=== PATIENT | male | born 1945 | race Caucasian/White ===

== ENCOUNTER → 2016-09-01 | Outpatient (CLI) | payer BC ==
[~2016-09-01] MED LIST: GLC/500 PO; GLIM2TAB2 PO
[2016-09-01 16:25] LABS: ALT/SGPT 16 U/L (12-78); BLOOD UREA NITROGEN 19 mg/dl (7-18); BUN/CREATININE RATIO 19.9 (10-20); CALCIUM 9.3 mg/dl (8.5-10.1); CARBON DIOXIDE 27 mmol/L (21-32); CHLORIDE 103 mmol/L (98-107); CREATININE 0.94 mg/dl (0.60-1.40); GLUCOSE 135 mg/dl (70-99); POTASSIUM 3.9 mmol/L (3.5-5.1); SODIUM 138 mmol/L (136-145)
[2016-09-01 16:28] LABS: ALB/GLOB RATIO 1.1 (0.9-2); ALKALINE PHOSPHATASE 60 U/L (45-117); AST/SGOT 12 U/L (15-37)
[2016-09-01 16:32] LABS: ESTIMATED AVERAGE GLUCOSE 186 mg/dl; HA1C FLAG Normal (Normal)
== END | disposition home or self-care (01) ==
LOC: C.LAB 14:36
PROVIDERS: ATTEND Nurse Practitioner Family
DX: E11.42 Type 2 diabetes mellitus with diabetic polyneuropathy (principal)

== ENCOUNTER → 2017-03-30 | Outpatient (CLI) | payer BC ==
[2017-03-30 12:42] LABS: BASO % 1.1 %; BASO ABS # 0.06 K/uL (0-0.2); COMPLETE YES; EOS % 3.6 %; HEMATOCRIT 40.9 % (42-52); LYMPH % 25.1 %; LYMPH ABS # 1.34 K/uL (1.2-3.4); MEAN CELL VOLUME 88.1 fL (80-100); MEAN CORPUSCULAR HEMOGLOBIN 29.7 pg (25-34); MEAN CORPUSCULAR HGB CONC 33.7 g/dl (32-36); MEAN PLATELET VOLUME 10.5 fL (7.4-10.4); MONO % 11.1 %; NEUT % 59.1 %; PLATELET COUNT 174 K/uL (130-400); RED BLOOD COUNT 4.64 M/uL (4.7-6.1); WHITE BLOOD COUNT 5.33 K/uL (4.8-10.8)
[2017-03-30 13:21] LABS: ALT/SGPT 17 U/L (12-78); AST/SGOT 12 U/L (15-37); BLOOD UREA NITROGEN 16 mg/dl (7-18); BUN/CREATININE RATIO 19.2 (10-20); CALCIUM 9.3 mg/dl (8.5-10.1); CARBON DIOXIDE 29 mmol/L (21-32); CHLORIDE 101 mmol/L (98-107); CHOLESTEROL 216 mg/dl (0-200); CREATININE 0.85 mg/dl (0.60-1.40); GLUCOSE 135 mg/dl (70-99); POTASSIUM 4.3 mmol/L (3.5-5.1); SODIUM 137 mmol/L (136-145)
[2017-03-30 13:25] LABS: ALB/GLOB RATIO 1.1 (0.9-2); ALKALINE PHOSPHATASE 60 U/L (45-117); CHOLESTEROL/HDL RATIO 3.9; HDL CHOLESTEROL 56 mg/dl; LDL CHOLESTEROL CALCULATED 131 mg/dl; TRIGLYCERIDES 144 mg/dl (0-150); VERY LOW DENSITY LIPOPROT CALC 29 mg/dl
[2017-03-30 13:35] LABS: ESTIMATED AVERAGE GLUCOSE 169 mg/dl; HA1C FLAG Normal (Normal)
[2017-03-30 16:06] LABS: CREATININE RANDOM URINE 76.9 mg/dl
[2017-03-30 16:27] LABS: RATIO 12.9 mcg/mg (0-30.0)
== END | disposition home or self-care (01) ==
LOC: C.LAB 11:40
PROVIDERS: ATTEND Nurse Practitioner Family
DX: E11.9 Type 2 diabetes mellitus without complications (principal); Z13.220 Encounter for screening for lipoid disorders

== ENCOUNTER → 2018-01-14 | Outpatient (CLI) | payer BC ==
[2018-01-14 11:27] LABS: ALBUMIN 3.9 gm/dl (3.4-5.0); ALKALINE PHOSPHATASE 50 U/L (45-117); ALT/SGPT 19 U/L (12-78); AST/SGOT 14 U/L (15-37); BLOOD UREA NITROGEN 16 mg/dl (7-18); CALCIUM 8.9 mg/dl (8.5-10.1); CARBON DIOXIDE 28 mmol/L (21-32); CREATININE 1.11 mg/dl (0.60-1.40); GLUCOSE 214 mg/dl (70-99); POTASSIUM 4.4 mmol/L (3.5-5.1); SODIUM 136 mmol/L (136-145); TOTAL PROTEIN 7.7 gm/dl (6.4-8.2)
== END | disposition home or self-care (01) ==
LOC: C.LAB 10:22
PROVIDERS: ATTEND Nurse Practitioner Family
DX: R79.89 Other specified abnormal findings of blood chemistry (principal)

== ENCOUNTER 2018-07-09 13:40 | Inpatient (IN) ==
[2018-07-09 14:19] LABS: Basophils # (auto) 0.06 K/uL (0-0.2); Basophils % (auto) 1.2 %; Eosinophils # (auto) 0.06 K/uL (0-0.5); Eosinophils % (auto) 1.2 %; Hematocrit (blood only) 34.9 % (42-52); Hemoglobin 11.9 g/dL (14.0-18.0); Immature Granulocytes # (auto) 0.01 K/uL (0.00-0.02); Immature Granulocytes % (auto) 0.2 %; Lymphocytes # (auto) 0.56 K/uL (1.2-3.4); Lymphocytes % (auto) 11.1 %; Mean Corpuscular Hgb Conc 34.1 g/dL (32-36); Mean Corpuscular Volume 85.1 fL (80-100); Mean Platelet Volume 10.1 fL (7.4-10.4); Monocytes # (auto) 0.61 K/uL (0.11-0.59); Monocytes % (auto) 12.1 %; Neutrophils # (auto) 3.73 K/uL (1.4-6.5); Neutrophils % (auto) 74.2 %; Platelet Count 204 K/uL (130-400); RDW Coefficient of Variation 12.5 % (11.5-14.5); White Blood Count 5.03 K/uL (4.8-10.8)
[2018-07-09 14:31] LABS: INR 1.1 (0.9-1.1); Partial Thromboplastin Ratio 1.1; Partial Thromboplastin Time 29.3 Seconds (21.0-31.0); Prothrombin Time 11.1 Seconds (9.0-12.0)
[2018-07-09 14:41] LABS: Alanine Aminotransferase 25 U/L (12-78); Albumin Level 3.8 gm/dl (3.4-5.0); Aspartate Aminotransferase 22 U/L (15-37); BUN Creatinine Ratio 12.1 (10-20); Blood Urea Nitrogen 18 mg/dl (7-18); Carbon Dioxide 22 mmol/L (21-32); Chloride 92 mmol/L (98-107); Creatinine Clr Calc Pharmacy 45.8 ml/min; Est GFR (Non-African American) 44.9; Glucose 275 mg/dl (70-99); Magnesium 1.7 mg/dl (1.8-2.4); Potassium 4.1 mmol/L (3.5-5.1); Sodium 125 mmol/L (136-145)
[2018-07-09 14:48] LABS: Albumin Globulin Ratio 0.8 (0.9-2); Alkaline Phosphatase 72 U/L (45-117); Bilirubin,Total 1.4 mg/dl (0.2-1); Globulin 4.5 gm/dl (2.5-4.0); Total Protein 8.3 gm/dl (6.4-8.2); Troponin I < 0.015 ng/ml (0-0.045)
--- NOTE | 2018-07-09 15:59 | Emergency Department Note ---
History of Present Illness General Chief complaint: Infection, Wound Stated complaint: SEPSIS IN RIGHT FOOT Source: patient Mode of arrival: ambulatory Limitations: no limitations History of Present Illness Maximum Pain Intensity: 0 This patient is a 73-year-old male who presents to the emergency department complaining of an infection to his right fourth toe. The patient reports that he has been dealing with infection in the toe for the past 6 months on and off. He was told over the last 1-2 weeks that it had progressed to osteomyelitis. He states that approximately 1 week ago, the foot suddenly became more red, inflamed and swollen. He has been experiencing chills over the past 1-2 days. He has been seeing his inspector raw quartz for this infection and has been on antibiotics off and on, most recently ciprofloxacin and Bactrim which he is currently taking. He reports that his recent cultures showed worsening infection. He was seen by the inspector raw quartz today and advised advised to come here for evaluation of sepsis. He denies any known fevers at home. The patient is a diabetic and does not regularly check his blood sugars. He denies any numbness or weakness. Home Medications Home Medications Medication Instructions Recorded Confirmed Type ciprofloxacin HCl 500 mg PO DIRECTED 07/09/18 07/09/18 History glimepiride 4 mg PO DAILY 07/09/18 07/09/18 History metformin 1,000 mg PO BID 07/09/18 07/09/18 History sulfamethoxazole-trimethoprim 0 tab PO DIRECTED 07/09/18 07/09/18 History Allergies Allergy/AdvReac Type Severity Reaction Status Date / Time No Known Allergies Allergy Unknown Verified 07/09/18 21:37 Past Med/Surg History Medical History Type 2 diabetes mellitus (Chronic) Surgical History History of tonsillectomy Family History Other Family history non-contributory Social History Current Living Situation: Spouse current occupational status: retired Other Information That Helps Us Care for You: No Feels Safe at Home: Yes Safety Concerns: Feels Safe At This Time Smoking Status: Never smoker Hx Alcohol Use: No Hx Substance Use: No Beliefs That Will Affect Care: None Preferred Language: Jamaican Communication Ability: Effective Review of Systems A total of 10 systems reviewed and were otherwise negative Physical Exam Vital Signs Vital Signs - 24 hr 07/09/18 13:42 07/09/18 14:45 07/09/18 15:34 Temperature 36.7 C Temperature Source Oral Sepsis Recent Fever Within 48 Hours No Sepsis New/Unexplained Change in Mental Status No Sepsis Action Taken by Nursing No Action Required Pulse Rate 97 H 84 Pulse Rate [Apical] Pulse Rate [Left Finger] Pulse Rhythm [Apical] Pulse Strength [Apical] Respiratory Rate 18 22 Respiratory Effort / Characteristics Non-Labored Respiratory Depth Normal Respiratory Pattern Blood Pressure 138/73 132/69 Blood Pressure [Right Arm] Blood Pressure Mean 94 90 Blood Pressure Mean [Right Arm] Blood Pressure Position [Right Arm] Pulse Oximetry 99 99 94 Oxygen Delivery Method Room Air Room Air 07/09/18 15:48 07/09/18 15:59 07/09/18 16:00 Temperature Temperature Source Sepsis Recent Fever Within 48 Hours Sepsis New/Unexplained Change in Mental Status Sepsis Action Taken by Nursing Pulse Rate 83 82 Pulse Rate [Apical] 87 Pulse Rate [Left Finger] Pulse Rhythm [Apical] Pulse Strength [Apical] Respiratory Rate 20 21 21 Respiratory Effort / Characteristics Respiratory Depth Respiratory Pattern Blood Pressure 126/71 Blood Pressure [Right Arm] 139/74 Blood Pressure Mean 89 Blood Pressure Mean [Right Arm] 95 Blood Pressure Position [Right Arm] Pulse Oximetry 96 94 94 Oxygen Delivery Method Room Air 07/09/18 16:30 07/09/18 17:00 07/09/18 17:30 Temperature Temperature Source Sepsis Recent Fever Within 48 Hours Sepsis New/Unexplained Change in Mental Status Sepsis Action Taken by Nursing Pulse Rate 80 84 86 Pulse Rate [Apical] Pulse Rate [Left Finger] Pulse Rhythm [Apical] Pulse Strength [Apical] Respiratory Rate 22 25 H 28 H Respiratory Effort / Characteristics Respiratory Depth Respiratory Pattern Blood Pressure 126/68 122/78 124/72 Blood Pressure [Right Arm] Blood Pressure Mean 87 92 89 Blood Pressure Mean [Right Arm] Blood Pressure Position [Right Arm] Pulse Oximetry 93 93 94 Oxygen Delivery Method 07/09/18 18:00 07/09/18 18:56 07/09/18 23:00 Temperature 37.1 C 37.9 C H Temperature Source Oral Oral Sepsis Recent Fever Within 48 Hours Sepsis New/Unexplained Change in Mental Status Sepsis Action Taken by Nursing Pulse Rate 83 Pulse Rate [Apical] 87 Pulse Rate [Left Finger] 88 Pulse Rhythm [Apical] Regular Pulse Strength [Apical] Normal Respiratory Rate 21 24 18 Respiratory Effort / Characteristics Non-Labored Spontaneous Respiratory Depth Normal Respiratory Pattern Regular Blood Pressure 135/76 Blood Pressure [Right Arm] 131/71 122/54 L Blood Pressure Mean 95 Blood Pressure Mean [Right Arm] 91 76 Blood Pressure Position [Right Arm] Lying Lying Pulse Oximetry 94 95 92 Oxygen Delivery Method Room Air Room Air 07/10/18 01:47 Temperature 37.3 C Temperature Source Oral Sepsis Recent Fever Within 48 Hours Sepsis New/Unexplained Change in Mental Status Sepsis Action Taken by Nursing Pulse Rate Pulse Rate [Apical] Pulse Rate [Left Finger] Pulse Rhythm [Apical] Pulse Strength [Apical] Respiratory Rate Respiratory Effort / Characteristics Respiratory Depth Respiratory Pattern Blood Pressure Blood Pressure [Right Arm] Blood Pressure Mean Blood Pressure Mean [Right Arm] Blood Pressure Position [Right Arm] Pulse Oximetry Oxygen Delivery Method VITALS: Vitals are noted on the nurse's note and reviewed by myself. Vital signs stable. GENERAL: This is a 73-year-old male, in no acute distress, nondiaphoretic, well- developed well-nourished. SKIN: Clear refill within 2 seconds. EYES: Pupils equal round and reactive to light and accommodation. MOUTH: Mucous membranes moist. NECK: Supple without nuchal rigidity. HEART: Regular rate and rhythm without murmurs gallops or rubs. LUNGS: Clear to auscultation bilaterally without wheezes, rales or rhonchi. ABDOMEN: Soft, nontender to palpation. EXTREMITIES: There is an ulcerated lesion to the lateral aspect of the right fourth digit with surrounding erythema and mild puslike drainage. NEURO: Patient was alert and oriented to person place and time. Distal sensation intact. Course Reevaluation(s) Reevaluation #1: The patient was reevaluated and is agreeable to admission. Consultations Consultation #1: Dr. Colindres - [facility] [place] Administered Medications Sodium Chloride (Nss 1000ml) 1,000 mls @ 100 mls/hr IV .Q10H [place] Stop: 08/08/18 18:49 Last Admin: 07/09/18 20:57 Dose: 100 mls/hr Insulin Aspart (Novolog Flexpen) 0 units SC ACHS [place] Stop: 08/08/18 20:59 Last Admin: 07/09/18 22:41 Dose: 7 units Insulin Glargine (Lantus Solostar Pen) 5 units SC Q12H [place] Stop: 08/08/18 20:59 Last Admin: 07/09/18 22:39 Dose: 5 units Discontinued Medications Sodium Chloride (Nss 1000ml) 1,000 mls @ 999 mls/hr IV .Q1H1M [place] Stop: 07/09/18 17:45 Last Infusion: 07/09/18 18:45 Dose: 0 mls/hr Admin: 07/09/18 17:46 Dose: 999 mls/hr Ampicillin Sodium/Sulbactam Sodium 3,000 mg/ Sodium Chloride 108 mls @ 200 mls/ hr IV NOW STA Stop: 07/09/18 17:17 Last Admin: 07/09/18 17:54 Dose: Not Given Magnesium Sulfate/Dextrose (Magnesium Sulfate / D5w) 1 gm in 100 mls @ 100 mls/ hr IV Q1H [place] Stop: 07/09/18 19:29 Last Infusion: 07/09/18 20:54 Dose: 0 mls/hr Admin: 07/09/18 19:38 Dose: 100 mls/hr Infusion: 07/09/18 18:45 Dose: 100 mls/hr Admin: 07/09/18 17:45 Dose: 100 mls/hr Metronidazole (Flagyl) 500 mg in 100 mls @ 100 mls/hr IV NOW STA Stop: 07/09/18 18:07 Last Infusion: 07/09/18 18:45 Dose: 0 mls/hr Admin: 07/09/18 17:45 Dose: 100 mls/hr Ceftriaxone Sodium 2,000 mg/ (Dextrose) 70 mls @ 100 mls/hr IV NOW STA Stop: 07/09/18 17:49 Last Infusion: 07/09/18 18:45 Dose: 0 mls/hr Admin: 07/09/18 17:45 Dose: 100 mls/hr Medical Decision Making Differential Diagnosis Differential diagnosis includes osteomyelitis, sepsis, cellulitis, among others. Medical Records Attestation: I reviewed the patient's medical records. Reviewed outside records from patient's inspector raw quartz. Home Medications Current Medication List: was personally reviewed by me Laboratory Data Attestation: I reviewed the patient's lab results. Result diagrams: 07/09/18 14:02 07/09/18 14:02 Lab Results 07/09/18 07/09/18 07/09/18 Range/Units 14:02 14:02 14:02 WBC 5.03 (4.8-10.8) K/uL RBC 4.10 L (4.7-6.1) M/uL Hgb 11.9 L (14.0-18.0) g/dL Hct 34.9 L (42-52) % MCV 85.1 (80-100) fL MCH 29.0 (25-34) pg MCHC 34.1 (32-36) g/dL RDW Std Deviation 39.0 (36.4-46.3) fL RDW Coeff of Elsa 12.5 (11.5-14.5) % Plt Count 204 (130-400) K/uL MPV 10.1 (7.4-10.4) fL Immature Gran % (Auto) 0.2 % Neut % (Auto) 74.2 % Lymph % (Auto) 11.1 % Austin % (Auto) 12.1 % Eos % (Auto) 1.2 % Baso % (Auto) 1.2 % Immature Gran # (Auto) 0.01 (0.00-0.02) K/uL Neut # (Auto) 3.73 (1.4-6.5) K/uL Lymph # (Auto) 0.56 L (1.2-3.4) K/uL Austin # (Auto) 0.61 H (0.11-0.59) K/uL Eos # (Auto) 0.06 (0-0.5) K/uL Baso # (Auto) 0.06 (0-0.2) K/uL ESR (0-14) mm/hr PT 11.1 (9.0-12.0) Seconds INR 1.1 (0.9-1.1) APTT 29.3 (21.0-31.0) Seconds PTT Ratio 1.1 Sodium 125 L (136-145) mmol/L Potassium 4.1 (3.5-5.1) mmol/L Chloride 92 L (98-107) mmol/L Carbon Dioxide 22 (21-32) mmol/L Anion Gap 11.0 (3-11) BUN 18 (7-18) mg/dl Creatinine 1.50 H (0.6-1.4) mg/dl Est Cr Clr Drug Dosing 45.8 ml/min Est GFR ( Amer) 52.0 Est GFR (Non-Af Amer) 44.9 BUN/Creatinine Ratio 12.1 (10-20) Glucose 275 H (70-99) mg/dl POC Glucose (70-99) Osmolality (280-300) mOsm/kg Lactate (0.4-2.0) mmol/L Calcium 9.0 (8.5-10.1) mg/dl Magnesium 1.7 L (1.8-2.4) mg/dl Total Bilirubin 1.4 H (0.2-1) mg/dl AST 22 (15-37) U/L ALT 25 (12-78) U/L Alkaline Phosphatase 72 (45-117) U/L Troponin I < 0.015 (0-0.045) ng/ml C-Reactive Protein (0-0.29) mg/dl Total Protein 8.3 H (6.4-8.2) gm/dl Albumin 3.8 (3.4-5.0) gm/dl Globulin 4.5 H (2.5-4.0) gm/dl Albumin/Globulin Ratio 0.8 L (0.9-2) Urine Color Urine Appearance (Clear) Urine pH (4.5-7.5) Ur Specific [place] (1.000-1.030) Urine Protein (Negative) Urine Glucose (UA) (Negative) Urine Ketones (Negative) Urine Blood (Negative) Urine Nitrite (Negative) Urine Bilirubin (Negative) Urine Urobilinogen (Negative) Ur Leukocyte Esterase (Negative) Urine WBC (Auto) (0-5) /hpf Urine RBC (Auto) (0-4) /hpf U Hyaline Cast (Auto) (0-5) /lpf U Epithel Cells (Auto) (0-5) /lpf Urine Bacteria (Auto) (Negative) Urine Osmolality (500-800) mOsm/kg Ur Random Sodium mmol/L 07/09/18 07/09/18 07/09/18 Range/Units 14:02 14:02 14:02 WBC (4.8-10.8) K/uL RBC (4.7-6.1) M/uL Hgb (14.0-18.0) g/dL Hct (42-52) % MCV (80-100) fL MCH (25-34) pg MCHC (32-36) g/dL RDW Std Deviation (36.4-46.3) fL RDW Coeff of Elsa (11.5-14.5) % Plt Count (130-400) K/uL MPV (7.4-10.4) fL Immature Gran % (Auto) % Neut % (Auto) % Lymph % (Auto) % [place] % (Auto) % Eos % (Auto) % Baso % (Auto) % Immature Gran # (Auto) (0.00-0.02) K/uL Neut # (Auto) (1.4-6.5) K/uL Lymph # (Auto) (1.2-3.4) K/uL [place] # (Auto) (0.11-0.59) K/uL Eos # (Auto) (0-0.5) K/uL Baso # (Auto) (0-0.2) K/uL ESR 48 H (0-14) mm/hr PT (9.0-12.0) Seconds INR (0.9-1.1) APTT (21.0-31.0) Seconds PTT Ratio Sodium (136-145) mmol/L Potassium (3.5-5.1) mmol/L Chloride (98-107) mmol/L Carbon Dioxide (21-32) mmol/L Anion Gap (3-11) BUN (7-18) mg/dl Creatinine (0.6-1.4) mg/dl Est Cr Clr Drug Dosing ml/min Est GFR ( Amer) Est GFR (Non-Af Amer) BUN/Creatinine Ratio (10-20) Glucose (70-99) mg/dl POC Glucose (70-99) Osmolality 281 (280-300) mOsm/kg Lactate 2.0 (0.4-2.0) mmol/L Calcium (8.5-10.1) mg/dl Magnesium (1.8-2.4) mg/dl Total Bilirubin (0.2-1) mg/dl AST (15-37) U/L ALT (12-78) U/L Alkaline Phosphatase (45-117) U/L Troponin I (0-0.045) ng/ml C-Reactive Protein (0-0.29) mg/dl Total Protein (6.4-8.2) gm/dl Albumin (3.4-5.0) gm/dl Globulin (2.5-4.0) gm/dl Albumin/Globulin Ratio (0.9-2) Urine Color Urine Appearance (Clear) Urine pH (4.5-7.5) Ur Specific [place] (1.000-1.030) Urine Protein (Negative) Urine Glucose (UA) (Negative) Urine Ketones (Negative) Urine Blood (Negative) Urine Nitrite (Negative) Urine Bilirubin (Negative) Urine Urobilinogen (Negative) Ur Leukocyte Esterase (Negative) Urine WBC (Auto) (0-5) /hpf Urine RBC (Auto) (0-4) /hpf U Hyaline Cast (Auto) (0-5) /lpf U Epithel Cells (Auto) (0-5) /lpf Urine Bacteria (Auto) (Negative) Urine Osmolality (500-800) mOsm/kg Ur Random Sodium mmol/L 07/09/18 07/09/18 07/09/18 Range/Units 14:02 20:22 20:40 WBC (4.8-10.8) K/uL RBC (4.7-6.1) M/uL Hgb (14.0-18.0) g/dL Hct (42-52) % MCV (80-100) fL MCH (25-34) pg MCHC (32-36) g/dL RDW Std Deviation (36.4-46.3) fL RDW Coeff of Elsa (11.5-14.5) % Plt Count (130-400) K/uL MPV (7.4-10.4) fL Immature Gran % (Auto) % Neut % (Auto) % Lymph % (Auto) % [place] % (Auto) % Eos % (Auto) % Baso % (Auto) % Immature Gran # (Auto) (0.00-0.02) K/uL Neut # (Auto) (1.4-6.5) K/uL Lymph # (Auto) (1.2-3.4) K/uL Austin # (Auto) (0.11-0.59) K/uL Eos # (Auto) (0-0.5) K/uL Baso # (Auto) (0-0.2) K/uL ESR (0-14) mm/hr PT (9.0-12.0) Seconds INR (0.9-1.1) APTT (21.0-31.0) Seconds PTT Ratio Sodium (136-145) mmol/L Potassium (3.5-5.1) mmol/L Chloride (98-107) mmol/L Carbon Dioxide (21-32) mmol/L Anion Gap (3-11) BUN (7-18) mg/dl Creatinine (0.6-1.4) mg/dl Est Cr Clr Drug Dosing ml/min Est GFR ( Amer) Est GFR (Non-Af Amer) BUN/Creatinine Ratio (10-20) Glucose (70-99) mg/dl POC Glucose 220 H (70-99) Osmolality (280-300) mOsm/kg Lactate (0.4-2.0) mmol/L Calcium (8.5-10.1) mg/dl Magnesium (1.8-2.4) mg/dl Total Bilirubin (0.2-1) mg/dl AST (15-37) U/L ALT (12-78) U/L Alkaline Phosphatase (45-117) U/L Troponin I (0-0.045) ng/ml C-Reactive Protein 6.47 H (0-0.29) mg/dl Total Protein (6.4-8.2) gm/dl Albumin (3.4-5.0) gm/dl Globulin (2.5-4.0) gm/dl Albumin/Globulin Ratio (0.9-2) Urine Color Urine Appearance (Clear) Urine pH (4.5-7.5) Ur Specific [place] (1.000-1.030) Urine Protein (Negative) Urine Glucose (UA) (Negative) Urine Ketones (Negative) Urine Blood (Negative) Urine Nitrite (Negative) Urine Bilirubin (Negative) Urine Urobilinogen (Negative) Ur Leukocyte Esterase (Negative) Urine WBC (Auto) (0-5) /hpf Urine RBC (Auto) (0-4) /hpf U Hyaline Cast (Auto) (0-5) /lpf U Epithel Cells (Auto) (0-5) /lpf Urine Bacteria (Auto) (Negative) Urine Osmolality 384 L (500-800) mOsm/kg Ur Random Sodium mmol/L 07/09/18 07/09/18 Range/Units 20:40 20:40 WBC (4.8-10.8) K/uL RBC (4.7-6.1) M/uL Hgb (14.0-18.0) g/dL Hct (42-52) % MCV (80-100) fL MCH (25-34) pg MCHC (32-36) g/dL RDW Std Deviation (36.4-46.3) fL RDW Coeff of Elsa (11.5-14.5) % Plt Count (130-400) K/uL MPV (7.4-10.4) fL Immature Gran % (Auto) % Neut % (Auto) % Lymph % (Auto) % [place] % (Auto) % Eos % (Auto) % Baso % (Auto) % Immature Gran # (Auto) (0.00-0.02) K/uL Neut # (Auto) (1.4-6.5) K/uL Lymph # (Auto) (1.2-3.4) K/uL [place] # (Auto) (0.11-0.59) K/uL Eos # (Auto) (0-0.5) K/uL Baso # (Auto) (0-0.2) K/uL ESR (0-14) mm/hr PT (9.0-12.0) Seconds INR (0.9-1.1) APTT (21.0-31.0) Seconds PTT Ratio Sodium (136-145) mmol/L Potassium (3.5-5.1) mmol/L Chloride (98-107) mmol/L Carbon Dioxide (21-32) mmol/L Anion Gap (3-11) BUN (7-18) mg/dl Creatinine (0.6-1.4) mg/dl Est Cr Clr Drug Dosing ml/min Est GFR ( Amer) Est GFR (Non-Af Amer) BUN/Creatinine Ratio (10-20) Glucose (70-99) mg/dl POC Glucose (70-99) Osmolality (280-300) mOsm/kg Lactate (0.4-2.0) mmol/L Calcium (8.5-10.1) mg/dl Magnesium (1.8-2.4) mg/dl Total Bilirubin (0.2-1) mg/dl AST (15-37) U/L ALT (12-78) U/L Alkaline Phosphatase (45-117) U/L Troponin I (0-0.045) ng/ml C-Reactive Protein (0-0.29) mg/dl Total Protein (6.4-8.2) gm/dl Albumin (3.4-5.0) gm/dl Globulin (2.5-4.0) gm/dl Albumin/Globulin Ratio (0.9-2) Urine Color Yellow Urine Appearance Clear (Clear) Urine pH 5.0 (4.5-7.5) Ur Specific [place] 1.015 (1.000-1.030) Urine Protein Negative (Negative) Urine Glucose (UA) 2+ H (Negative) Urine Ketones 1+ H (Negative) Urine Blood Trace H (Negative) Urine Nitrite Negative (Negative) Urine Bilirubin Negative (Negative) Urine Urobilinogen Negative (Negative) Ur Leukocyte Esterase Negative (Negative) Urine WBC (Auto) 0 (0-5) /hpf Urine RBC (Auto) 0-4 (0-4) /hpf U Hyaline Cast (Auto) 0 (0-5) /lpf U Epithel Cells (Auto) 0-5 (0-5) /lpf Urine Bacteria (Auto) Negative (Negative) Urine Osmolality (500-800) mOsm/kg Ur Random Sodium 66 mmol/L Imaging Data Attestation: I personally reviewed and interpreted this imaging study as follows : Radiologist's Impression: RIGHT FOOT 3 VIEWS FINDINGS: 3 views of the right foot are correlated with radiographs of the right second toe dated 01/31/2013. The skeletal structures are osteopenic. There is fracture through the distal shaft of the fourth proximal phalanx. No additional acute fracture is seen. No erosive change is identified. Mild osteoarthritic change is seen at the first metatarsophalangeal joint. There are small dorsal and plantar calcaneal enthesophytes. Degenerative spurring is seen along the dorsal aspect of the tarsal bones. Mild soft tissue edema is present in the forefoot. There is atherosclerotic calcification of the regional arteries. IMPRESSION: 1. There is fracture through the distal shaft of the fourth proximal phalanx. Underlying infection would be impossible to exclude and clinical correlation will be required. 2. No bony erosion is clearly identified. 3. No additional fracture is seen. 4. Osteopenia, degenerative change, and heel spurs as above. Blood Pressure Blood Pressure Findings: Normal blood pressure Blood Pressure Disposition: did not require urgent referral MDM Narrative The patient is a 73-year-old male who presents today complaining of persistent and worsening infection of the right fourth toe. I was able to review the patient's records from his inspector raw quartz office. The patient has been treated for this osteomyelitis for several months and seems to have been worsening over the past few weeks. X-rays there reviewed some bony erosion, however he now has a fracture on x-ray. Patient does not appear to be septic, however I do feel he will need to be admitted for treatment of the osteomyelitis. I did speak with the ED pharmacist who recommended Flagyl and Rocephin. Patient was given initial doses of these. The case was [facility] with the [facility] who will evaluate the patient for admission. The patient was independently evaluated by Dr. Sin, who agreed with my assessment and treatment plan. Impression & Plan Osteomyelitis of toe of right foot Discharge Plan Visit Data *Final* Discharge Date/Time: 07/09/18 18:14 Chief Complaint: Infection, Wound Stated Complaint: SEPSIS IN RIGHT FOOT ED Provider: Augustus Sin ED Midlevel Provider: Pita Ny Discharge Problem: Osteomyelitis of toe of right foot Patient Disposition: Admitted As Inpatient Discharge Instructions Interventions: ED Discharge Assessment Last Done: 07/09/18 18:14
--- NOTE | 2018-07-09 16:05 | XRay Report ---
RIGHT FOOT 3 VIEWS CLINICAL HISTORY: Fourth toe infection. FINDINGS: 3 views of the right foot are correlated with radiographs of the right second toe dated 01/13. The skeletal structures are osteopenic. There is fracture through the distal shaft of the fou rth proximal phalanx. No additional acute fracture is seen. No erosive change is identified. Mild ost eoarthritic change is seen at the first metatarsophalangeal joint. There are small dorsal and plantar calcaneal enthesophytes. Degenerative spurring is seen along the dorsal aspect of the tarsal bones. Mild soft tissue edema is present in the forefoot. There is atherosclerotic calcification of the gloria onal arteries. IMPRESSION: 1. There is fracture through the distal shaft of the fourth proximal phalanx. Underlying infection wo uld be impossible to exclude and clinical correlation will be required. 2. No bony erosion is clearly identified. 3. No additional fracture is seen. 4. Osteopenia, degenerative change, and heel spurs as above. Electronically signed by: Alonso Sparrow M.D. 07/09/2018 4:04 PM
[2018-07-09] MEDS ORDERED: SODIUM CHLORIDE 0.9% 1000ML 1,000 ML IV SCH (16:45)
[2018-07-09] MEDS ORDERED: AMPICILLIN/SULBACTAM SOD 3,000 MG in 0.9 % SODIUM CHLORIDE 100 ML IV STA (16:45)
[2018-07-09] MEDS ORDERED: metroNIDAZOLE 500 MG/100 ML BAG IV STA (17:08)
[2018-07-09] MEDS ORDERED: cefTRIAXone SODIUM 2,000 MG in DEXTROSE 5% 50 ML IV STA (17:08)
--- NOTE | 2018-07-09 17:42 | History & Physical Report ---
Date of Service July 09, 2018 Assessment & Plan (1) Foot osteomyelitis, right: - Has had right foot ulcer on lateral aspect of fourth toe for ~6 months, follows with podiatry. Now with worsening infection with known osteomyelitis and open fracture - Wound culture 07/03 +Alpha strep, Coag neg Staph and Prevotella bivia, failing outpatient treatment with Cipro and Bactrim. It is possible that the Prevotella is resistant to Cipro - Repeat wound and blood cultures are pending. - Foot XR: fracture through distal shaft of 4th proximal phalanx, cannot exclude underlying infection. - Discussed with racking machine operator part time receptionist -- pt. will likely not require surgical intervention as inpt. Will need to follow up for surgery as scheduled on [address] Medina. However, the patient and his family are insistent that he have his toe amputated during this hospitalization as he is very fearful that he will get septic and otherwise. -Therefore, as his primary racking machine operator is out of town for the next 2 weeks, he would like a consult to a different racking machine operator-I will consult Dr. Meri Gill at this time - Start Ceftriaxone/Flagyl for empiric coverage. - Consult ID for abx recs. (2) Type 2 diabetes mellitus: - Most recent hemoglobin A1C was 8.3 in December 2017. - Hold home oral medications. - Start Lantus & SSI coverage -- titrate as needed. (3) Stage III chronic kidney disease: - Renally dose all meds. (4) Systolic murmur: - Will order TTE to evaluate for vegetation, as well as to evaluate for aortic stenosis which would affect his perioperative cardiovascular risk for surgery if it was severe (5) Electrolyte abnormality: - Corrected sodium level was 129; start NS at 100 cc/hr. - Mag level was 1.7 -- ordered Mag sulfate 2 gm IV. -will check urine sodium, urine osmolality, and serum osmolality (6) DVT prophylaxis: - Hold for possible procedure. Dispo: Med/surg for IV abx, podiatry consult. History of Present Illness Chief Complaint: Right foot wound Primary Care Provider: Jose Zhou, III, SENIOR ARCHITECT Mr. Burris is a 73 year old male with past medical history of right fourth toe chronic osteomyelitis times 6 months, type II diabetes mellitus who presented to the ED with worsening acute right fourth toe infection. Recent wound culture of right fourth toe wound was positive for Alpha strep, Coag negative Staph and Prevotella bivia on 07/01/18. He started a course of Cipro/Bactrim as an outpatient with no improvement in foot wound. Pt. states he has had fever/ chills over the last week along with increased redness/swelling of the right foot wound. He denies pain in right foot; pt. has minimal sensation in right foot. Denies chest pain, SOB, LE edema, N/V, diarrhea or constipation, dysuria or hematuria. Foot XR showed fracture through distal shaft of 4th proximal phalanx. Wound and blood cultures are pending. Pt. will be admitted for further work up and podiatry consult for possible surgical intervention. Allergies Allergy/AdvReac Type Severity Reaction Status Date / Time No Known Allergies Allergy Unknown Verified 06/06/15 10:01 Home Medications Home Medications Medication Instructions Recorded Confirmed Type ciprofloxacin HCl 500 mg PO DIRECTED 07/09/18 07/09/18 History glimepiride 4 mg PO DAILY 07/09/18 07/09/18 History metformin 1,000 mg PO BID 07/09/18 07/09/18 History sulfamethoxazole-trimethoprim 0 tab PO DIRECTED 07/09/18 07/09/18 History Past Med/Surg History Medical History Type 2 diabetes mellitus (Chronic) Surgical History History of tonsillectomy Family History Other Family history non-contributory Social History Current Living Situation: Spouse current occupational status: retired Other Information That Helps Us Care for You: No Feels Safe at Home: Yes Safety Concerns: Feels Safe At This Time Smoking Status: Never smoker Hx Alcohol Use: No Hx Substance Use: No Beliefs That Will Affect Care: None Preferred Language: Sammarinese Communication Ability: Effective Review of Systems All systems reviewed & are unremarkable except as noted in HPI & below Constitutional: + fever, + chills, + weakness and + anorexia Respiratory: no cough and no dyspnea Cardiovascular: no chest pain, no palpitations and no edema Gastrointestinal: no abdominal pain, no nausea, no vomiting, no constipation and no diarrhea/loose stools Genitourinary (Male): no dysuria and no difficulty urinating Musculoskeletal: no joint pain Integumentary: + skin ulcer (Right fourth toe ) Allergy / Immunological: no rash Physical Exam 2 Vital Signs (Past 24 Hours): Last Vital Signs Temp 36.7 C 07/09/18 13:42 Pulse 80 07/09/18 16:30 Resp 22 07/09/18 16:30 BP 126/68 07/09/18 16:30 Pulse Ox 93 07/09/18 16:30 Physical Exam: General: Resting comfortably in no apparent distress HEENT: NC/AT; PERRLA with EOMI; [place] conjunctiva, MMM. Neck: Supple and nontender Cardiac: +2/6 systolic murmur; regular rate and rhythm Lungs: CTA bilaterally Abdomen: Bowel normoactive X 4; Nontender to palpation Rectal: Deferred : Deferred Back: NO spinous tenderness Extremities: Warm. No edema present Neuro: No focal weakness Skin: Ulcerated lesion to the lateral aspect of right fourth toe, no discharge noted. Results & Data Laboratory Results 07/09/18 07/09/18 07/09/18 Range/Units 14:02 14:02 14:02 WBC (4.8-10.8) K/uL RBC (4.7-6.1) M/uL Hgb (14.0-18.0) g/dL Hct (42-52) % MCV (80-100) fL MCH (25-34) pg MCHC (32-36) g/dL RDW Std Deviation (36.4-46.3) fL RDW Coeff of Elsa (11.5-14.5) % Plt Count (130-400) K/uL MPV (7.4-10.4) fL Immature Gran % (Auto) % Neut % (Auto) % Lymph % (Auto) % [place] % (Auto) % Eos % (Auto) % Baso % (Auto) % Immature Gran # (Auto) (0.00-0.02) K/uL Neut # (Auto) (1.4-6.5) K/uL Lymph # (Auto) (1.2-3.4) K/uL [place] # (Auto) (0.11-0.59) K/uL Eos # (Auto) (0-0.5) K/uL Baso # (Auto) (0-0.2) K/uL PT 11.1 (9.0-12.0) Seconds INR 1.1 (0.9-1.1) APTT 29.3 (21.0-31.0) Seconds PTT Ratio 1.1 Sodium 125 L (136-145) mmol/L Potassium 4.1 (3.5-5.1) mmol/L Chloride 92 L (98-107) mmol/L Carbon Dioxide 22 (21-32) mmol/L Anion Gap 11.0 (3-11) BUN 18 (7-18) mg/dl Creatinine 1.50 H (0.6-1.4) mg/dl Est Cr Clr Drug Dosing 45.8 ml/min Est GFR ( Amer) 52.0 Est GFR (Non-Af Amer) 44.9 BUN/Creatinine Ratio 12.1 (10-20) Glucose 275 H (70-99) mg/dl Lactate 2.0 (0.4-2.0) mmol/L Calcium 9.0 (8.5-10.1) mg/dl Magnesium 1.7 L (1.8-2.4) mg/dl Total Bilirubin 1.4 H (0.2-1) mg/dl AST 22 (15-37) U/L ALT 25 (12-78) U/L Alkaline Phosphatase 72 (45-117) U/L Troponin I < 0.015 (0-0.045) ng/ml Total Protein 8.3 H (6.4-8.2) gm/dl Albumin 3.8 (3.4-5.0) gm/dl Globulin 4.5 H (2.5-4.0) gm/dl Albumin/Globulin Ratio 0.8 L (0.9-2) 07/09/ Range/Units 14:02 WBC 5.03 (4.8-10.8) K/uL RBC 4.10 L (4.7-6.1) M/uL Hgb 11.9 L (14.0-18.0) g/dL Hct 34.9 L (42-52) % MCV 85.1 (80-100) fL MCH 29.0 (25-34) pg MCHC 34.1 (32-36) g/dL RDW Std Deviation 39.0 (36.4-46.3) fL RDW Coeff of Elsa 12.5 (11.5-14.5) % Plt Count 204 (130-400) K/uL MPV 10.1 (7.4-10.4) fL Immature Gran % (Auto) 0.2 % Neut % (Auto) 74.2 % Lymph % (Auto) 11.1 % [place] % (Auto) 12.1 % Eos % (Auto) 1.2 % Baso % (Auto) 1.2 % Immature Gran # (Auto) 0.01 (0.00-0.02) K/uL Neut # (Auto) 3.73 (1.4-6.5) K/uL Lymph # (Auto) 0.56 L (1.2-3.4) K/uL [place] # (Auto) 0.61 H (0.11-0.59) K/uL Eos # (Auto) 0.06 (0-0.5) K/uL Baso # (Auto) 0.06 (0-0.2) K/uL PT (9.0-12.0) Seconds INR (0.9-1.1) APTT (21.0-31.0) Seconds PTT Ratio Sodium (136-145) mmol/L Potassium (3.5-5.1) mmol/L Chloride (98-107) mmol/L Carbon Dioxide (21-32) mmol/L Anion Gap (3-11) BUN (7-18) mg/dl Creatinine (0.6-1.4) mg/dl Est Cr Clr Drug Dosing ml/min Est GFR ( Amer) Est GFR (Non-Af Amer) BUN/Creatinine Ratio (10-20) Glucose (70-99) mg/dl Lactate (0.4-2.0) mmol/L Calcium (8.5-10.1) mg/dl Magnesium (1.8-2.4) mg/dl Total Bilirubin (0.2-1) mg/dl AST (15-37) U/L ALT (12-78) U/L Alkaline Phosphatase (45-117) U/L Troponin I (0-0.045) ng/ml Total Protein (6.4-8.2) gm/dl Albumin (3.4-5.0) gm/dl Globulin (2.5-4.0) gm/dl Albumin/Globulin Ratio (0.9-2) Diagnostic Findings RIGHT FOOT 3 VIEWS CLINICAL HISTORY: Fourth toe infection. FINDINGS: 3 views of the right foot are correlated with radiographs of the right second toe dated 01/31/2013. The skeletal structures are osteopenic. There is fracture through the distal shaft of the fourth proximal phalanx. No additional acute fracture is seen. No erosive change is identified. Mild osteoarthritic change is seen at the first metatarsophalangeal joint. There are small dorsal and plantar calcaneal enthesophytes. Degenerative spurring is seen along the dorsal aspect of the tarsal bones. Mild soft tissue edema is present in the forefoot. There is atherosclerotic calcification of the regional arteries. IMPRESSION: 1. There is fracture through the distal shaft of the fourth proximal phalanx. Underlying infection would be impossible to exclude and clinical correlation will be required. 2. No bony erosion is clearly identified. 3. No additional fracture is seen. 4. Osteopenia, degenerative change, and heel spurs as above. Code Status & VTE Plan Code Status FULL CODE Supervising Physician Co-Signing Physician Notes PA Supervision Note: I personally saw and examined the patient. I verified all bruner points and agree with RONI Schuster with the following exceptions and/or additions: This patient is a 73-year-old male with history of uncontrolled diabetes mellitus type 2 and diabetic neuropathy, who presents with acute on chronic right fourth toe infection with osteomyelitis. He has failed outpatient treatment with Bactrim and Cipro and the toe is becoming more red and swollen. He has been having fevers and chills at home but none documented here in the ER. He was seen by podiatry as an outpatient today who was concerned for sepsis and sent him to the ER. The patient is committed to having an amputation and already has a scheduled as an outpatient, however he is insistent that this be done as soon as possible as an inpatient. Unfortunately , his primary racking machine operator is out of town for the next 2 weeks and none of the remaining partners have privileges at this hospital. Past history and ROS otherwise as above Laboratory values, foot x-ray image personally reviewed by me ECG pending at the time of this dictation Vitals reviewed Gen: AAOx3, NAD, anxious HEENT: Anicteric sclerae, EOMI CV: RRR 3/6 JUVENAL heard best at the RUSB nl S1S2 Pulm: CTAB no wcr Abd: +BS soft NT ND no masses or hernias Ext: No edema, 2+ DP pulses, right lateral fourth toe with open wound with necrotic tissue, no foul odor, right toe is edematous and erythematous with mild erythema on the dorsal lateral foot Skin: No rashes, warm/dry, fourth toe as above Neuro: Full strength throughout This patient is a 73-year-old male here with diabetic foot infection with osteomyelitis and open right fourth toe fracture. Concern for sepsis on admission due to subjective chills at home but no documented fever here yet. He does not have sepsis at this time, but is at high risk for this especially as he is having subjective fevers at home. -Follow blood cultures and repeat wound culture -The known Prevotella may have been resistant to the Cipro previously-switching now to Rocephin to cover for the staph and strep, as well as Flagyl to cover for this anaerobic organism -Appreciate infectious disease consultation -We will consult podiatry to see about possible amputation during this admission -Preoperative ECG ordered, but otherwise he is able to easily achieve 4 METS and has no history of cardiac or pulmonary issues. However, he does have a loud aortic murmur on examination and will check echo to look for severe aortic stenosis as this will change his cardiac perioperative risk. Also checking echo to look for valvular vegetation.
[2018-07-09] MEDS: MAGNESIUM SULFATE / D5W 1 GM/100 ML BAG IV SCH ×2 (17:45→19:38)
[2018-07-09] MEDS ORDERED: GLUCOSE 10 TABS/TUBE PO PRN (18:50)
[2018-07-09] MEDS ORDERED: DEXTROSE 50% 50 ML SYRINGE IV PRN (18:50)
[2018-07-09] MEDS ORDERED: GLUCOSE 40% GEL 15 GM TUBE PO PRN (18:50)
[2018-07-09] MEDS ORDERED: GLUCAGON FOR INJ 1 MG VIAL SQ PRN (18:50)
[2018-07-09] MEDS ORDERED: CARBOHYDRATES FOR HYPOGLYCEMIA PO PRN (18:50)
--- NOTE | 2018-07-09 18:51 | Emergency Department Note ---
Entered by Morgan Henley acting as a scribe for Augustus Sin MD ED Visit Note The patient was seen and examined with Pita Ny PA-C: [facility] Emergency Department Advanced [employer] Oil Cooler Operator. We discussed the case and treatments ordered, reviewed the results, and determine the disposition. Please refer to the PA's note for additional details. I have been directly involved with the management and disposition as well as independently evaluated the patient as documentation in this note. The scribe's documentation has been prepared under my direction and personally reviewed by me in its entirety. I confirm that the note above accurately reflects all work, treatment, procedures, and medical decision making performed by me.
[2018-07-09] MEDS: SODIUM CHLORIDE 0.9% 1000ML 1,000 ML IV SCH (20:57)
[2018-07-09] MEDS ORDERED: INSULIN ASPART 100 UNITS/ML 3 ML PEN SC SCH (21:00)
[2018-07-09 21:01] LABS: Appearance Urine Clear (Clear); Bacteria Urine Automated Negative (Negative); Bilirubin Urine Negative (Negative); Cast Urine Automated 0 /lpf (0-5); Color Urine Yellow; Epithelial Cell Urine Auto 0-5 /lpf (0-5); Glucose Urine UA 2+ (Negative); Ketones Urine 1+ (Negative); Leukocyte Esterase Urine Negative (Negative); Nitrite Urine Negative (Negative); Protein Urine Negative (Negative); Specific Gravity Urine 1.015 (1.000-1.030); Urobilinogen Urine Negative (Negative); WBC Urine Automated 0 /hpf (0-5)
[2018-07-09] MEDS: INSULIN GLARGINE SOLOSTAR 100 UNITS/ML 3 ML PEN SC SCH (22:39)
[2018-07-10] MEDS: metroNIDAZOLE 500 MG/100 ML BAG IV SCH ×3 (02:14→18:24)
[2018-07-10] MEDS ORDERED: Nursing to Pharmacy Communication ONE ×2 (03:13→12:05)
[2018-07-10] MEDS: INSULIN ASPART 100 UNITS/ML 3 ML PEN SC SCH ×5 (06:27→21:13)
[2018-07-10 07:16] LABS: Hematocrit (blood only) 31.1 % (42-52); Hemoglobin 10.4 g/dL (14.0-18.0); Mean Corpuscular Hgb Conc 33.4 g/dL (32-36); Mean Corpuscular Volume 86.1 fL (80-100); Mean Platelet Volume 9.7 fL (7.4-10.4); Platelet Count 182 K/uL (130-400); RDW Coefficient of Variation 12.6 % (11.5-14.5); Red Blood Count 3.61 M/uL (4.7-6.1); White Blood Count 4.02 K/uL (4.8-10.8)
[2018-07-10] MEDS: INSULIN GLARGINE SOLOSTAR 100 UNITS/ML 3 ML PEN SC SCH ×2 (07:31→21:12)
[2018-07-10] MEDS: SODIUM CHLORIDE 0.9% 1000ML 1,000 ML IV SCH ×3 (07:34→22:40)
[2018-07-10 07:46] LABS: BUN Creatinine Ratio 10.3 (10-20); Calcium 8.1 mg/dl (8.5-10.1); Creatinine Clr Calc Pharmacy 53.8 ml/min; Est GFR (African American) 63.6; Est GFR (Non-African American) 54.9; Potassium 3.9 mmol/L (3.5-5.1)
[2018-07-10 07:53] LABS: Estimated Average Glucose 237 mg/dl
[2018-07-10] MEDS ORDERED: MIDAZOLAM HCL 1 MG/ML 2ML VIAL ONE (08:27)
[2018-07-10] MEDS ORDERED: fentaNYL citrate 100 MCG/2 ML VIAL ONE (08:27)
[2018-07-10] MEDS ORDERED: BACITRACIN INJ 50,000 UNIT VIAL ONE (08:47)
[2018-07-10] MEDS ORDERED: BUPIVACAINE 0.5 % 5 MG/1 ML MPF 30ML VIAL ONE (08:47)
--- NOTE | 2018-07-10 08:56 | Anesthesiology Consultation ---
Date of Service July 10, 2018 Assessment & Plan (1) Encounter for pre-operative examination: Chart Review Chart Review: order entry clerk initiated Consults Requested none ASA ASA3 Proposed Anesthesia Anesthesia Type: MAC NPO Date Last Intake of Fluids: 07/09/18 Time Last Intake of Fluids: 23:59 Date Last Intake of Solids: 07/09/18 Time Last Intake of Solids: 21:38 Last Intake of Solids Comment: dinner History Surgery Operation Date: 07/10/18 08:35 Proposed Procedures p Right 4th toe amputation and incision and drainage(Right) - Meri Gill DPM Height/Weight Height: 5 ft 8 in Weight: 86.6 kg Allergies Allergy/AdvReac Type Severity Reaction Status Date / Time No Known Allergies Allergy Unknown Verified 07/09/18 21:37 Medications Home Medications Medication Instructions Recorded Confirmed Last Taken ciprofloxacin HCl 500 mg PO DIRECTED 07/09/18 07/09/18 07/09/18 glimepiride 4 mg PO DAILY 07/09/18 07/09/18 07/09/18 metformin 1,000 mg PO BID 07/09/18 07/09/18 07/09/18 sulfamethoxazole-trimethoprim 0 tab PO DIRECTED 07/09/18 07/09/18 07/09/18 Active Medications Generic Name Dose Route Start Last Admin Trade Name Freq PRN Reason Stop Dose Admin Metronidazole 500 mg in 100 mls @ 100 mls/hr 07/10/18 02:00 07/10/18 09:32 Flagyl IV 08/21/18 01:59 Not Given Q8H GEORGES Sodium Chloride 1,000 mls @ 100 mls/hr 07/09/18 18:50 07/10/18 09:32 Nss 1000ml IV 08/08/18 18:49 0 mls/hr .Q10H GEORGES Infusion Insulin Aspart 0 units 07/10/18 06:00 07/10/18 06:27 Novolog Flexpen SC 08/09/18 05:59 Not Given Q6 GEORGES Insulin Glargine 5 units 07/09/18 21:00 07/10/18 07:31 Lantus Solostar Pen SC 08/08/18 20:59 5 units Q12H GEORGES Administration Past Medical History Medical History Type 2 diabetes mellitus (Chronic) CKD Osteomyelitis Past Family History Family History Other Family history non-contributory Past Surgical History Surgical History History of tonsillectomy History of colonoscopy Social History Smoking Status: Never smoker Hx Alcohol Use: No Hx Substance Use: No Physical Exam Vital Signs Last Vital Signs Temp 37.0 C 07/10/18 08:21 Pulse 76 07/10/18 08:21 Resp 20 07/10/18 08:21 BP 114/70 07/10/18 08:21 Pulse Ox 95 07/10/18 08:21 Testing Electrocardiogram Date: 07/09/18 Findings: + NSR @ and + NSST changes 1 degree AVB, rate 87 Laboratory Results 07/10/18 06:55 07/10/18 06:55 PT 11.1 Seconds (9.0-12.0) 07/09/18 14:02 INR 1.1 (0.9-1.1) 07/09/18 14:02 APTT 29.3 Seconds (21.0-31.0) 07/09/18 14:02 Hemoglobin A1c 9.9 % (4.5-5.6) H 07/10/18 06:55 Urine Color Yellow 07/09/18 20:40 Urine Appearance Clear (Clear) 07/09/18 20:40 Urine pH 5.0 (4.5-7.5) 07/09/18 20:40 Ur Specific Elaine 1.015 (1.000-1.030) 07/09/18 20:40 Urine Protein Negative (Negative) 07/09/18 20:40 Urine Glucose (UA) 2+ (Negative) H 07/09/18 20:40 Urine Ketones 1+ (Negative) H 07/09/18 20:40 Urine Nitrite Negative (Negative) 07/09/18 20:40 Ur Leukocyte Esterase Negative (Negative) 07/09/18 20:40 Urine WBC (Auto) 0 /hpf (0-5) 07/09/18 20:40 Urine RBC (Auto) 0-4 /hpf (0-4) 07/09/18 20:40 U Hyaline Cast (Auto) 0 /lpf (0-5) 07/09/18 20:40 U Epithel Cells (Auto) 0-5 /lpf (0-5) 07/09/18 20:40 Urine Bacteria (Auto) Negative (Negative) 07/09/18 20:40 07/09/18 Unknown Gram Stain - Final Toe,Right Fourth 07/10/18 06:08 POC Glucose 148 H
[2018-07-10] MEDS ORDERED: ATROPINE SULFATE 0.1 MG/ML 10ML SYR IV PRN (09:37)
[2018-07-10] MEDS ORDERED: ePHEDrine sulfate 50 MG/ML AMP IV PRN (09:37)
--- NOTE | 2018-07-10 09:48 | History & Physical Bridge Note ---
Date of Service July 10, 2018 History & Physical Bridge Note I have examined the patient, reviewed the History & Physical and in the interval since the performance of the History & Physical I have noted the following changes of clinical significance: no changes noted
[2018-07-10] MEDS ORDERED: PROPOFOL IV EMULSION 10 MG/ML 20 ML VIAL IV ONE (10:05)
[2018-07-10] MEDS ORDERED: LIDOCAINE HCL 2% 2 ML VIAL/AMP(20MG/ML) INFIL ONE (10:05)
--- NOTE | 2018-07-10 11:02 | Consultation Report ---
DATE OF CONSULTATION: 07/10/2018 HISTORY OF PRESENT ILLNESS: A 73-year-old pleasant male seen at bedside at the request of the hospitalist. The patient has been seen by Dr. Medina who is currently on vacation for a chronic ulceration per the hospitalist. The patient previously had refused an amputation, unknown duration, probably longer than 6 months based on review of the chart. The patient was admitted yesterday through the ER with increased worsening infections, fevers, chills and redness. The patient notes that this infection is started over the past 2 weeks and he is requesting an immediate amputation with his concerns of sepsis and dying from the infection. The patient has been treated as an outpatient with Cipro and Bactrim for an unknown duration. PAST SURGICAL HISTORY: Tonsils and adenoids. PAST MEDICAL HISTORY: NIDDM, chronic kidney disease stage III, recent electrolyte abnormality, systolic murmur, peripheral neuropathy. MEDICATIONS: Outpatient meds are Bactrim and Cipro. Current empiric antibiotics, ceftriaxone. Additional meds per chart. ALLERGIES: No known drug allergies. REVIEW OF SYSTEMS: Fevers and chills. PHYSICAL EXAMINATION: VASCULAR: DP 1/4, PT 1/4. Absence of digital hairs noted. Fusiform swelling noted encompassing the right fourth toe. Mild edema noted to the right fifth toe. DERMATOLOGIC: There is an ulceration probing to bone lateral aspect, PIP joint, right fourth digit, medial aspect of the right fifth digit involving subcutaneous tissue over the medial aspect of the distal phalanx. No probeable bone noted. Dry serosanguineous drainage noted in the callous tissue over both the ulcerations and no active drainage noted to either of the ulcerative sites. Erythema to the level of the metatarsophalangeal joint of the right foot. NEUROLOGIC: Epicritic sensation absent per [place]al-Jsutin monofilament. MUSCULOSKELETAL: Adductor varus deformity of the right fifth, PIPJ contracture noted of right fourth and fifth digits. LABORATORIES: Blood culture pending. Wound culture from 07/01 shows alpha strep, coag negative staph. It is ____ bivia. X-ray from 07/09 shows a fracture at the distal shaft of the proximal phalanx. Blood work: WBC is 4.02. ESR 48. IMPRESSION: 1. Osteomyelitis of right fourth with Benavides grade 3 ulceration, lateral proximal interphalangeal joint 2. Benavides grade 2 ulceration, medial right fifth digit to the level of subcutaneous. 3. [id number] diabetes mellitus with peripheral neuropathy. 4. Rule out sepsis. Blood cultures pending. 5. Chronic kidney disease stage III. 6. Systolic murmur. 7. Electrolyte abnormality. TREATMENT: Chart was reviewed. Reviewed the procedure, risks and complications for an amputation right fourth digit with I and D. Reviewed procedures, risks and complications at length with the patient regarding the amputation including continued infection resulting in a more proximal amputation and delayed healing secondary to the diabetes and current infection. The patient is aware of these risks due to the nature and severity of this infection and concerns of sepsis and dying. All questions were answered at bedside. Procedures, risks and complications were fully reviewed with the patient. I instructed the patient I would draw him a diagram and consent form would be signed prior to presenting to the OR. All his questions were answered. Complications were discussed in detail with the patient including pain and continued infection, swelling that may or may not be excessive, pins and needles feeling, numbness, metatarsalgia, excessive bleeding, delayed or nonhealing of bone, delayed or nonhealing skin, enlarged scar, failure of the procedure, reoccurrence or worsening condition which may not require further surgery, adverse reaction to anesthesia, allergic reaction to suture or other implant material, loss of foot or more proximal amputation including the leg, peripheral nerve complications, problems with remaining toes including flail toe, stiff toe, short toe, deviated toe, specifically with removal of the right fourth toe, neurovascular complications such as phlebitis, damage to nerves or vascular structures, significant chronic pain, chronic nerve pain or damage, and general medical complications. The patient will be required to be in a surgery shoe until the site heals. He is informed that it may not be closed depending on the intraoperative findings and the infection that may require further surgery for closing of the skin. We also discussed a PICC line with IV antibiotics. The patient is aware this is an elective type procedure and I recommend a second opinion. The patient stated he understood. All questions were answered. The patient will be sent to the OR later today for amputation of right fourth toe.
--- NOTE | 2018-07-10 11:11 | Operative Report ---
Post Operative Report Pre & Post Diagnosis Operation Date: 07/10/18 08:35 Pre-Op Diagnosis: Right 4th toe osteomyelitis. Ulceration R4, R5th digits Post-Op Diagnosis: Right 4th toe osteomyelitis. Procedure Operation Date: 07/10/18 08:35 Actual Procedures p Right 4th toe amputation (MTPJ level) with incison and drainage; debridement of right 5th toe, and flap rotation for secondary closure (Right) foot - Meri Gill DPM Surgeon Meri Gill DPM Adaptive Physical Educator none Estimated Blood Loss 5 Findings Consistent with Post-Op Diagnosis Specimens bone and soft tissue sent Description of Procedure see op note I attest to the content of the Intraoperative Record and any orders documented therein. Any exceptions are noted below.
--- NOTE | 2018-07-10 11:27 | Fluoroscopy Report ---
ADDENDUM Status post resection of the right fourth toe at the level of the metatarsophalangeal joint. Electronically signed by: Low Barrett M.D. 07/10/2018 11:34 AM ORIGINAL REPORT FL toe RT 2V HISTORY: 73 years-old Male RT FOURTH TOE AMPUTATION status post amputation of the right fourth toe COMPARISON: Right foot radiographs 07/09/2017 TECHNIQUE: 2 spot fluoroscopic images of the right foot were obtained utilizing 21.8 seconds fluorosc opy time. FINDINGS: Status post resection of the right toe at the level of the metatarsal phalangeal joint. Expected soft tissue swelling and deep tissue air within this distribution. Degenerative changes of the metatarsop halangeal and interphalangeal joints are noted. No retained foreign body. IMPRESSION: Status post resection of the right toe at the level of the metatarsal phalangeal joint. The above report was generated using voice recognition software. It may contain grammatical, syntax o r spelling errors. Electronically signed by: Low Barrett M.D. 07/10/2018 11:25 AM
--- NOTE | 2018-07-10 11:48 | Anesthesiology Progress Note ---
Date of Service July 10, 2018 Anesthesia Post Procedure Vital Signs Vital Signs: Temp Pulse Pulse Pulse Resp BP BP 07/10/18 11:46 37.2 C 07/10/18 11:45 67 21 07/10/18 11:40 66 17 123/71 07/10/18 11:35 67 20 120/68 07/10/18 11:30 68 20 121/70 07/10/18 11:25 66 18 118/69 07/10/18 11:20 70 16 111/66 07/10/18 11:16 68 21 07/10/18 11:14 36.3 C L 71 70 17 104/67 104/67 07/10/18 08:21 37.0 C 76 20 114/70 07/10/18 01:47 37.3 C 07/09/18 23:00 37.9 C H 88 18 122/54 L 07/09/18 18:56 37.1 C 87 24 131/71 07/09/18 18:00 83 21 135/76 07/09/18 17:30 86 28 H 124/72 07/09/18 17:00 84 25 H 122/78 07/09/18 16:30 80 22 126/68 07/09/18 16:00 82 21 126/71 07/09/18 15:59 83 21 07/09/18 15:48 87 20 139/74 07/09/18 15:34 84 22 132/69 07/09/18 14:45 07/09/18 13:42 36.7 C 97 H 18 138/73 Pulse Ox 07/10/18 11:46 95 07/10/18 11:45 95 07/10/18 11:40 95 07/10/18 11:35 95 07/10/18 11:30 95 07/10/18 11:25 95 07/10/18 11:20 95 07/10/18 11:16 96 07/10/18 11:14 95 07/10/18 08:21 95 07/10/18 01:47 07/09/18 23:00 92 07/09/18 18:56 95 07/09/18 18:00 94 07/09/18 17:30 94 07/09/18 17:00 93 07/09/18 16:30 93 07/09/18 16:00 94 07/09/18 15:59 94 07/09/18 15:48 96 07/09/18 15:34 94 07/09/18 14:45 99 07/09/18 13:42 99 Notes Mental Status: alert / awake / arousable and participated in evaluation Patient Amnestic to Procedure: Yes Nausea / Vomiting: adequately controlled Pain: adequately controlled Airway Patency, RR, SpO2: stable & adequate BP & HR: stable & adequate Hydration State: stable & adequate Anesthetic Complications: no major complications apparent
--- NOTE | 2018-07-10 13:37 | XRay Report ---
XR chest 1V portable HISTORY: 73 years-old Male PICC TIP CONFIRMATION - [place]TE status post placement of a right-sided PICC COMPARISON: Chest radiograph 12/23/2013 TECHNIQUE: Portable AP view of the chest FINDINGS: Cardiac silhouette is upper limits of normal in size. Right-sided PICC has been placed with distal ti p terminating within the region of the mid to inferior SVC. No postprocedural pneumothorax identified . Calcification the thoracic aortic arch. Lungs are hypoinflated with bronchovascular crowding. Subse gmental bibasilar opacities suggest atelectasis. Degenerative changes of the shoulders and spine. IMPRESSION: 1. Right-sided PICC distal tip terminates in the region of the mid to inferior SVC. No postprocedural pneumothorax. 2. Hypoinflation with mild bibasilar atelectasis. The above report was generated using voice recognition software. It may contain grammatical, syntax o r spelling errors. Electronically signed by: Low Barrett M.D. 07/10/2018 1:35 PM
--- NOTE | 2018-07-10 14:49 | Hospitalist Progress Note ---
Date of Service July 10, 2018 Assessment & Plan (1) Foot osteomyelitis, right: - Has had right foot ulcer on lateral aspect of fourth toe for ~6 months, follows with podiatry. Now with worsening infection with known osteomyelitis and open fracture - Wound culture 07/03 +Alpha strep, Coag neg Staph and Prevotella bivia, failing outpatient treatment with Cipro and Bactrim. It is possible that the Prevotella is resistant to Cipro s/p amputation right 4th toe and debridement 5th toe with Dr. Gill on 07/10 tolerated well, pain controlled continue Rocephin and Flagyl, follow up repeat culture, infectious disease following (2) Type 2 diabetes mellitus: - Most recent hemoglobin A1C was 8.3 in December 2017. - Hold home oral medications. - Hb A1c here is 9.9% would recommend using Lantus, will start 10mg qAM continue Novolog SS resume PO meds on discharge (3) Stage III chronic kidney disease: - Renally dose all meds., Cr is stable (4) Systolic murmur: echo normal, no , no vegetations he has had the murmur for years, ever since he was teenager (5) Electrolyte abnormality: - Corrected sodium level was 129; start NS at 100 cc/hr. Na up to 131 today - Mag level was 1.7 -- ordered Mag sulfate 2 gm IV on admission (6) DVT prophylaxis: start Lovenox tomorrow Subjective patient seen after 4th toe amputation and 5th toe debridement tolerated well, no complications no chest pain, no dyspnea, no nausea, no vomiting pain is well controlled in foot reviewed labs, WBC 4k, Hb 10.4, Cr stable at 1.27 discussed elevated HbA1c at 9.9, asked if he had ever used Lantus, he has not tried Invokana but stopped when he heard about it causing necrosis of toes? family updated at the bedside discussed with Dr. Hampton, appreciate his recommendations Review of Systems All systems reviewed & are unremarkable except as noted in HPI & below Respiratory: no cough Cardiovascular: no chest pain and no dyspnea Gastrointestinal: no abdominal pain, no nausea, no vomiting, no constipation and no diarrhea/loose stools Integumentary: + wounds (right foot dressed) Physical Exam 2 Vital Signs (Past 24 Hours): Last Vital Signs Temp 36.5 C 07/10/18 14:07 Pulse 78 07/10/18 14:07 Resp 18 07/10/18 14:07 BP 126/70 07/10/18 14:07 Pulse Ox 95 07/10/18 14:07 Constitutional: WD/WN, vitals as above Eyes: PERRL, conjunctivae normal, anicteric sclerae ENMT: external ear and nose normal, oropharynx normal Neck: trachea midline, no thyromegaly Respiratory: normal respiratory effort, lungs clear to auscultation Cardiovascular: Rate/Rhythm: regular rate and regular rhythm Heart Sounds: normal S1, normal S2 and + murmur (systolic) Vessels: normal peripheral pulses; no JVD Extremities: normal capillary refill Gastrointestinal (Abdomen): normal bowel sounds, soft, nontender, no hepatosplenomegaly Musculoskeletal: no cyanosis or clubbing, extremities motor strength 5/5 Skin: no rashes, warm and dry + wound (right foot wrapped) Neurologic: patellar DTR's 2+ bilat, sensation intact and PERRL, EOMI, accommodation nl, no face palsy, no dysarthria Psychiatric: A+Ox3, euthymic affect Lymphatic: no cervical or axillary lymphadenopathy Results & Data Laboratory Results Laboratory Results - last 24 hr 07/09/18 07/09/18 07/09/18 14:02 14:02 14:02 WBC RBC Hgb Hct MCV MCH MCHC RDW Std Deviation RDW Coeff of Elsa Plt Count MPV ESR 48 H Sodium Potassium Chloride Carbon Dioxide Anion Gap BUN Creatinine Est Cr Clr Drug Dosing Est GFR ( Amer) Est GFR (Non-Af Amer) BUN/Creatinine Ratio Glucose POC Glucose Estimat Average Glucose Hemoglobin A1c Osmolality 281 Calcium C-Reactive Protein 6.47 H Urine Color Urine Appearance Urine pH Ur Specific [place] Urine Protein Urine Glucose (UA) Urine Ketones Urine Blood Urine Nitrite Urine Bilirubin Urine Urobilinogen Ur Leukocyte Esterase Urine WBC (Auto) Urine RBC (Auto) U Hyaline Cast (Auto) U Epithel Cells (Auto) Urine Bacteria (Auto) Urine Osmolality Ur Random Sodium 07/09/18 07/09/18 07/09/18 20:22 20:40 20:40 WBC RBC Hgb Hct MCV MCH MCHC RDW Std Deviation RDW Coeff of Elsa Plt Count MPV ESR Sodium Potassium Chloride Carbon Dioxide Anion Gap BUN Creatinine Est Cr Clr Drug Dosing Est GFR ( Amer) Est GFR (Non-Af Amer) BUN/Creatinine Ratio Glucose POC Glucose 220 H Estimat Average Glucose Hemoglobin A1c Osmolality Calcium C-Reactive Protein Urine Color Urine Appearance Urine pH Ur Specific [place] Urine Protein Urine Glucose (UA) Urine Ketones Urine Blood Urine Nitrite Urine Bilirubin Urine Urobilinogen Ur Leukocyte Esterase Urine WBC (Auto) Urine RBC (Auto) U Hyaline Cast (Auto) U Epithel Cells (Auto) Urine Bacteria (Auto) Urine Osmolality 384 L Ur Random Sodium 66 07/09/18 07/10/18 07/10/18 20:40 06:08 06:55 WBC 4.02 L RBC 3.61 L Hgb 10.4 L Hct 31.1 L MCV 86.1 MCH 28.8 MCHC 33.4 RDW Std Deviation 40.0 RDW Coeff of Elsa 12.6 Plt Count 182 MPV 9.7 ESR Sodium Potassium Chloride Carbon Dioxide Anion Gap BUN Creatinine Est Cr Clr Drug Dosing Est GFR ( Amer) Est GFR (Non-Af Amer) BUN/Creatinine Ratio Glucose POC Glucose 148 H Estimat Average Glucose Hemoglobin A1c Osmolality Calcium C-Reactive Protein Urine Color Yellow Urine Appearance Clear Urine pH 5.0 Ur Specific [place] 1.015 Urine Protein Negative Urine Glucose (UA) 2+ H Urine Ketones 1+ H Urine Blood Trace H Urine Nitrite Negative Urine Bilirubin Negative Urine Urobilinogen Negative Ur Leukocyte Esterase Negative Urine WBC (Auto) 0 Urine RBC (Auto) 0-4 U Hyaline Cast (Auto) 0 U Epithel Cells (Auto) 0-5 Urine Bacteria (Auto) Negative Urine Osmolality Ur Random Sodium 07/10/18 07/10/18 07/10/18 06:55 06:55 11:21 WBC RBC Hgb Hct MCV MCH MCHC RDW Std Deviation RDW Coeff of Elsa Plt Count MPV ESR Sodium 131 L Potassium 3.9 Chloride 100 Carbon Dioxide 22 Anion Gap 9.0 BUN 13 Creatinine 1.27 Est Cr Clr Drug Dosing 53.8 Est GFR ( Amer) 63.6 Est GFR (Non-Af Amer) 54.9 BUN/Creatinine Ratio 10.3 Glucose 147 H POC Glucose 150 H Estimat Average Glucose 237 Hemoglobin A1c 9.9 H Osmolality Calcium 8.1 L C-Reactive Protein Urine Color Urine Appearance Urine pH Ur Specific [place] Urine Protein Urine Glucose (UA) Urine Ketones Urine Blood Urine Nitrite Urine Bilirubin Urine Urobilinogen Ur Leukocyte Esterase Urine WBC (Auto) Urine RBC (Auto) U Hyaline Cast (Auto) U Epithel Cells (Auto) Urine Bacteria (Auto) Urine Osmolality Ur Random Sodium Medications Administered Current Inpatient Medications Dextrose (Dextrose 50%) 25 - 50 ml IV UD PRN; Protocol PRN Reason: Hypoglycemia Protocol Stop: 08/08/18 18:49 Glucagon (Glucagen) 1 mg SQ UD PRN; Protocol PRN Reason: Hypoglycemia Protocol Stop: 08/08/18 18:49 Glucose (Glucose 40%) 15 - 30 gm PO UD PRN; Protocol PRN Reason: Hypoglycemia Protocol Stop: 08/08/18 18:49 Glucose (Dex4 Glucose) 4 - 8 tabs PO UD PRN; Protocol PRN Reason: Hypoglycemia Protocol Stop: 08/08/18 18:49 Heparin Sodium (Beef Lung) (Heparin Sod 10 Unit/Ml Flush) 5 ml FLUSH PRN PRN PRN Reason: Flush Stop: 08/09/18 13:16 Metronidazole (Flagyl) 500 mg in 100 mls @ 100 mls/hr IV Q8H [place] Stop: 08/21/18 01:59 Last Admin: 07/10/18 09:32 Dose: Not Given Sodium Chloride (Nss 1000ml) 1,000 mls @ 100 mls/hr IV .Q10H [place] Stop: 08/08/18 18:49 Last Admin: 07/10/18 13:58 Dose: Not Given Ceftriaxone Sodium 2,000 mg/ (Dextrose) 70 mls @ 100 mls/hr IV Q24H [place] Stop: 08/21/18 17:29 Insulin Aspart (Novolog Flexpen) 0 units SC ACHS [place] Stop: 08/09/18 12:14 Last Admin: 07/10/18 13:30 Dose: 3 units Insulin Glargine (Lantus Solostar Pen) 5 units SC Q12H [place] Stop: 08/08/18 20:59 Last Admin: 07/10/18 07:31 Dose: 5 units Insulin Glargine (Lantus) 10 units SC QAM [facility] Stop: 08/10/18 08:59 Miscellaneous (Carbohydrates For Hypoglycemia) 15 - 30 gm PO UD PRN PRN Reason: Hypoglycemia Treatment Stop: 08/08/18 18:49
--- NOTE | 2018-07-10 15:48 | Infectious Disease Consult ---
Date of Consultation July 10, 2018 Assessment & Plan (1) Osteomyelitis of toe of right foot: 73-year-old diabetic male with probable osteomyelitis of the right fourth toe now status post amputation. Previous cultures positive for alpha strep and Prevotella, current treatment with ceftriaxone and metronidazole should provide adequate coverage pending final culture results. May require prolonged IV antibiotics. Will follow. History of Present Illness Reason for Consultation: Osteomyelitis Attending Physician: Skip Arreola DO History of Present Illness 73-year-old male with history of diabetes mellitus, peripheral neuropathy, who has had ulceration of his 4th right toe for several weeks, seen by Podiatry with plans for surgical intervention next month, with cultures positive for strep and anaerobes, not responding to oral ciprofloxacin and Bactrim, who was admitted to the hospital with progressively worsening redness and swelling around the ulceration, and patient has now undergone amputation. Has been started empirically on ceftriaxone and metronidazole. Cultures are pending. Pain currently 2/10 in intensity. Allergies Allergy/AdvReac Type Severity Reaction Status Date / Time No Known Allergies Allergy Unknown Verified 07/09/18 21:37 Home Medications Home Medications Medication Instructions Recorded Confirmed Type ciprofloxacin HCl 500 mg PO DIRECTED 07/09/18 07/09/18 History glimepiride 4 mg PO DAILY 07/09/18 07/09/18 History metformin 1,000 mg PO BID 07/09/18 07/09/18 History sulfamethoxazole-trimethoprim 0 tab PO DIRECTED 07/09/18 07/09/18 History Patient History Medical History Type 2 diabetes mellitus (Chronic) Surgical History History of tonsillectomy Family History Other Family history non-contributory Social History Current Living Situation: Spouse current occupational status: retired Other Information That Helps Us Care for You: No Feels Safe at Home: Yes Safety Concerns: Feels Safe At This Time Smoking Status: Never smoker Hx Alcohol Use: No Hx Substance Use: No Beliefs That Will Affect Care: None Preferred Language: Lao Communication Ability: Effective Review of Systems All systems were reviewed and are negative except as per HPI Physical Exam 2 Vital Signs (Past 24 Hours): Last Vital Signs Temp 36.6 C 07/10/18 14:50 Pulse 76 07/10/18 14:50 Resp 18 07/10/18 14:50 BP 128/74 07/10/18 14:50 Pulse Ox 96 07/10/18 14:50 Constitutional: WD/WN, vitals as above comfortable; no acute distress Eyes: PERRL, conjunctivae normal, anicteric sclerae ENMT: external ear and nose normal, oropharynx normal Neck: trachea midline, no thyromegaly neck nontender Respiratory: normal respiratory effort, lungs clear to auscultation normal percussion; does not use accessory muscles Cardiovascular: Rate/Rhythm: regular rate and regular rhythm Heart Sounds: normal S1 and normal S2; no gallop, no murmur and no cardiac rub Vessels: normal peripheral pulses; no JVD Gastrointestinal (Abdomen): normal bowel sounds, soft, nontender, no hepatosplenomegaly Musculoskeletal: no cyanosis or clubbing, extremities motor strength 5/5 Spine: thoracic spine normal to inspection and lumbar spine normal to inspection ; no cervical spinal tenderness Skin: no rashes, warm and dry normal turgor and + lesion Surgical dressing intact right foot Neurologic: moves all extremities and awake; no focal motor deficits Motor/ Sensory: + sensory deficit (Both feet) Psychiatric: A+Ox3, euthymic affect Orientation: cooperative Lymphatic: no cervical or axillary lymphadenopathy no inguinal lymphadenopathy Results & Data Laboratory Results Short CBC 07/10/18 Range/Units 06:55 WBC 4.02 L (4.8-10.8) K/uL Hgb 10.4 L (14.0-18.0) g/dL Hct 31.1 L (42-52) % Plt Count 182 (130-400) K/uL BMP 07/10/18 06:55 Sodium 131 L Potassium 3.9 Chloride 100 Carbon Dioxide 22 BUN 13 Creatinine 1.27 Glucose 147 H Calcium 8.1 L Urine 07/09/18 Range/Units 20:40 Urine Color Yellow Urine Appearance Clear (Clear) Urine pH 5.0 (4.5-7.5) Ur Specific [place] 1.015 (1.000-1.030) Urine Protein Negative (Negative) Urine Glucose (UA) 2+ H (Negative) Diagnostic Findings Microbiology 07/09/18 Unknown Toe,Right Fourth Gram Stain - Final 07/09/18 Unknown Toe,Right Fourth Wound Culture - Preliminary Coag negative Staphylococcus 07/10/18 10:31 Toe,Right Fourth Gram Stain - Final cc: ~ RIGHT FOOT 3 VIEWS CLINICAL HISTORY: Fourth toe infection. FINDINGS: 3 views of the right foot are correlated with radiographs of the right second toe dated 01/31/2013. The skeletal structures are osteopenic. There is fracture through the distal shaft of the fourth proximal phalanx. No additional acute fracture is seen. No erosive change is identified. Mild osteoarthritic change is seen at the first metatarsophalangeal joint. There are small dorsal and plantar calcaneal enthesophytes. Degenerative spurring is seen along the dorsal aspect of the tarsal bones. Mild soft tissue edema is present in the forefoot. There is atherosclerotic calcification of the regional arteries. IMPRESSION: 1. There is fracture through the distal shaft of the fourth proximal phalanx. Underlying infection would be impossible to exclude and clinical correlation will be required. 2. No bony erosion is clearly identified. 3. No additional fracture is seen. 4. Osteopenia, degenerative change, and heel spurs as above. Electronically signed by: Alonso Sparrow M.D. 07/09/2018 4:04 PM Dictated: 07/09/18 1601 Transcribed: 07/09/18 1601
--- NOTE | 2018-07-10 16:22 | Operative Report ---
DATE OF OPERATION: 07/10/2018 SURGEON: Meri Gill DPM. PREOPERATIVE DIAGNOSES: 1. Osteomyelitis with minor grade 3 ulceration, right fourth toe. 2. Cellulitis, right foot, rule out sepsis. 3. Non-insulin dependent diabetes mellitus with peripheral neuropathy. 4. Benavides grade 2 ulceration, right fifth digit. 5. Fracture, right fourth proximal phalanx, with displacement secondary to bone infection. 6. Chronic kidney disease stage III. POSTOPERATIVE DIAGNOSES: 1. Osteomyelitis with minor grade 3 ulceration, right fourth toe. 2. Cellulitis, right foot, rule out sepsis. 3. Non-insulin dependent diabetes mellitus with peripheral neuropathy. 4. Benavides grade 2 ulceration, right fifth digit. 5. Fracture, right fourth proximal phalanx, with displacement secondary to bone infection. 6. Chronic kidney disease stage III. PROCEDURES: 1. Incision and drainage, right foot. 2. Amputation, right fourth toe metatarsophalangeal joint level. 3. Flap rotation for secondary closure, right foot. 4. Debridement of ulceration, right fifth toe ulcer to the level of subcutaneous tissue. ANESTHESIA: IV with local sedation, preoperative block given of 0.5% Marcaine plain, total of 30 mL. ESTIMATED BLOOD LOSS: Less than 5 mL. MATERIALS: 3-0 and 4-0 nylon. IRRIGATION: 3000 units of normal saline with 1:1000 bacitracin. HISTOPATHOLOGY: Aerobic, anaerobic, and Gram stain, right foot for bone and soft tissue, right fourth. COMPLICATIONS: None. 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 Recommend 6 weeks of IV antibiotics. PICC line consent obtained preoperatively. ID consult pending. DESCRIPTION OF PROCEDURE: Patient was brought to the OR and placed on the OR table in supine position. Upon completion of IV sedation by the anesthesia department, the right fourth toe was blocked as well as the posterior tibial block. The extremity was scrubbed, prepped and draped in the usual aseptic fashion. Attention was directed to the right fourth digit where an elliptical incision was made over the toe. This extended back to the metatarsal level in a curvilinear fashion over the metatarsophalangeal joint for examination of the right fourth metatarsal head, with care to preserve all neurovascular structures. The toe was disarticulated and removed. It should be noted that the tissue was preserved over the dorsal, medial, and plantar aspects due to large soft tissue defect noted medially. This toe was disarticulated. Examination was performed of the fourth metatarsal head, which was found to be hard. There was no soft bone noted at the metatarsophalangeal joint level. The wound was copiously lavaged with 3000 units of normal saline with bacitracin. The flaps were rotated to allow for secondary closure to be performed. There was no purulence crossing the metatarsophalangeal joint or purulence noted throughout the toe removal; however, the proximal phalanx was quite soft over this area. Closure began of the skin and the flaps using 4-0 nylon. It should be noted that the dorsal skin was rotated more medially. The plantar flap was rotated more laterally in order to cover for the soft tissue defect that was noted over the toe. There was good capillary refill noted to the flaps. The right fifth digit was debrided with a 10 blade to level of subcutaneous tissue. Dry sterile compressive dressing consisting of Adaptic, 4x4s, ABD, Kerlix, and an Jayy was applied. It should be noted the culture was obtained after irrigation of 3000 units with bacitracin over the amputation site. All bone and soft tissue were sent to histopathology. Patient was readmitted to the floor for continued empiric IV antibiotics. Consent for a PICC line was obtained preoperatively. Recommend 6 weeks of IV antibiotics. ID consult pending. Will follow the patient until Dr. Medina returns. I attest to the content of the Intraoperative Record and any orders documented therein. Any exception s are noted below.
[2018-07-10] MEDS: cefTRIAXone SODIUM 2,000 MG in DEXTROSE 5% 50 ML IV SCH (16:43)
[2018-07-10] MEDS: POLYETHYLENE (MIRALAX) 17 GM PACK PO SCH (21:13)
[2018-07-11] MEDS: metroNIDAZOLE 500 MG/100 ML BAG IV SCH ×3 (02:58→17:50)
[2018-07-11 05:36] LABS: Basophils # (auto) 0.08 K/uL (0-0.2); Eosinophils # (auto) 0.18 K/uL (0-0.5); Eosinophils % (auto) 4.4 %; Hematocrit (blood only) 30.9 % (42-52); Hemoglobin 10.5 g/dL (14.0-18.0); Immature Granulocytes # (auto) 0.01 K/uL (0.00-0.02); Immature Granulocytes % (auto) 0.2 %; Lymphocytes # (auto) 1.18 K/uL (1.2-3.4); Lymphocytes % (auto) 28.9 %; Mean Corpuscular Volume 86.6 fL (80-100); Mean Platelet Volume 9.6 fL (7.4-10.4); Monocytes # (auto) 0.55 K/uL (0.11-0.59); Monocytes % (auto) 13.5 %; Neutrophils # (auto) 2.08 K/uL (1.4-6.5); Platelet Count 197 K/uL (130-400); RDW Coefficient of Variation 12.5 % (11.5-14.5); RDW Standard Deviation 40.4 fL (36.4-46.3); Red Blood Count 3.57 M/uL (4.7-6.1); White Blood Count 4.08 K/uL (4.8-10.8)
[2018-07-11 06:10] LABS: BUN Creatinine Ratio 13.6 (10-20); Calcium 8.1 mg/dl (8.5-10.1); Creatinine Clr Calc Pharmacy 65.7 ml/min; Est GFR (Non-African American) 69.9; Potassium 4.1 mmol/L (3.5-5.1)
[2018-07-11] MEDS ORDERED: ACETAMINOPHEN 325 MG TAB PO PRN (06:36)
--- NOTE | 2018-07-11 08:18 | Anesthesiology Progress Note ---
Date of Service July 11, 2018 Anesthesia Post Procedure Vital Signs Vital Signs: Temp Pulse Pulse Pulse Resp BP BP 07/11/18 07:10 37.4 C 71 18 145/78 H 07/11/18 03:00 37.2 C 80 17 146/79 H 07/10/18 23:22 37.5 C 82 17 132/73 07/10/18 19:14 36.9 C 84 18 154/79 H 07/10/18 14:50 36.6 C 76 18 07/10/18 14:07 36.5 C 78 18 07/10/18 13:15 36.4 C L 70 18 07/10/18 12:36 36.9 C 70 69 18 07/10/18 12:00 36.7 C 70 16 07/10/18 11:46 37.2 C 07/10/18 11:45 67 21 07/10/18 11:40 66 17 123/71 07/10/18 11:35 67 20 120/68 07/10/18 11:30 68 20 121/70 07/10/18 11:25 66 18 118/69 07/10/18 11:20 70 16 111/66 07/10/18 11:16 68 21 07/10/18 11:14 36.3 C L 71 70 17 104/67 07/10/18 08:21 37.0 C 76 20 BP Pulse Ox 07/11/18 07:10 94 07/11/18 03:00 93 07/10/18 23:22 93 07/10/18 19:14 96 07/10/18 14:50 128/74 96 07/10/18 14:07 126/70 95 07/10/18 13:15 126/70 95 07/10/18 12:36 130/73 96 07/10/18 12:00 129/67 95 07/10/18 11:46 95 07/10/18 11:45 95 07/10/18 11:40 95 07/10/18 11:35 95 07/10/18 11:30 95 07/10/18 11:25 95 07/10/18 11:20 95 07/10/18 11:16 96 07/10/18 11:14 104/67 95 07/10/18 08:21 114/70 95 Pain Intensity Right Toe: Pain Intensity: 0 Notes Mental Status: alert / awake / arousable and participated in evaluation Patient Amnestic to Procedure: Yes Nausea / Vomiting: adequately controlled Pain: adequately controlled Airway Patency, RR, SpO2: stable & adequate BP & HR: stable & adequate Hydration State: stable & adequate Anesthetic Complications: no major complications apparent
[2018-07-11] MEDS: ENOXAPARIN INJ 40 MG/0.4 ML SYR SQ SCH (08:59)
[2018-07-11] MEDS: POLYETHYLENE (MIRALAX) 17 GM PACK PO SCH (09:00)
[2018-07-11] MEDS ORDERED: INSULIN GLARGINE 100 UNIT/ML VIAL SC SCH (09:00)
[2018-07-11] MEDS: INSULIN ASPART 100 UNITS/ML 3 ML PEN SC SCH ×4 (09:03→21:23)
[2018-07-11] MEDS: INSULIN GLARGINE SOLOSTAR 100 UNITS/ML 3 ML PEN SC SCH (09:06)
[2018-07-11] MEDS: SODIUM CHLORIDE 0.9% 1000ML 1,000 ML IV SCH ×2 (11:36→21:19)
--- NOTE | 2018-07-11 13:34 | Hospitalist Progress Note ---
Date of Service July 11, 2018 Assessment & Plan (1) Foot osteomyelitis, right: - Has had right foot ulcer on lateral aspect of fourth toe for ~6 months, follows with podiatry. Now with worsening infection with known osteomyelitis and open fracture - Wound culture 07/03 +Alpha strep, Coag neg Staph and Prevotella bivia, failing outpatient treatment with Cipro and Bactrim. It is possible that the Prevotella is resistant to Cipro s/p amputation right 4th toe and debridement 5th toe with Dr. Gill on 07/10 tolerated well, some pain last night but now resolved continue Rocephin and Flagyl, follow up repeat culture, infectious disease following may require outpatient IV antibiotics, has right arm PICC may be ready for discharge tomorrow if okay with podiatry and CM can arrange outpatient antibiotics anticipate it would be Rocephin IV but check with ID (2) Type 2 diabetes mellitus: - Most recent hemoglobin A1C was 8.3 in December 2017. - Hold home oral medications. - Hb A1c here is 9.9% would recommend using Lantus, will start 10mg qAM continue Novolog SS discharge: recommend starting Lantus 20 units qAM in addition to oral medications close follow up with Jose Zhou (3) Stage III chronic kidney disease: - Renally dose all meds., Cr is stable (4) Systolic murmur: echo normal, no , no vegetations he has had the murmur for years, ever since he was teenager (5) Electrolyte abnormality: - Corrected sodium level was 129; start NS at 100 cc/hr. Na up to 131 yesterday, no further fluids needed - Mag level was 1.7 -- ordered Mag sulfate 2 gm IV on admission (6) DVT prophylaxis: Lovenox Plan: may be ready to go tomorrow if cleared by Podiatry and plans made for home IV Rocephin Subjective patient feeling well this morning but had pain last night with his right foot said that the pain was only 5 out of 10 asked if I was going to look at his wound, I assured him that Dr. Gill would round on him again asked about discharge explained that he may go home tomorrow if okay with podiatry and IV antibiotics could be arranged reviewed labs, glucose consistently > 200, increased the correction factor on Novolog SS Cr stable no chest pain, no dyspnea, tolerating diet Review of Systems All systems reviewed & are unremarkable except as noted in HPI & below Musculoskeletal: + joint pain (right foot pain) Physical Exam 2 Vital Signs (Past 24 Hours): Last Vital Signs Temp 36.4 C L 07/11/18 10:58 Pulse 72 07/11/18 10:58 Resp 18 07/11/18 10:58 BP 154/80 H 07/11/18 10:58 Pulse Ox 100 07/11/18 10:58 Constitutional: WD/WN, vitals as above Eyes: PERRL, conjunctivae normal, anicteric sclerae ENMT: external ear and nose normal, oropharynx normal Neck: trachea midline, no thyromegaly Respiratory: normal respiratory effort, lungs clear to auscultation Cardiovascular: Rate/Rhythm: regular rate and regular rhythm Heart Sounds: normal S1, normal S2 and + murmur (systolic) Vessels: normal peripheral pulses; no JVD Extremities: normal capillary refill Gastrointestinal (Abdomen): normal bowel sounds, soft, nontender, no hepatosplenomegaly Musculoskeletal: no cyanosis or clubbing, extremities motor strength 5/5 Skin: no rashes, warm and dry + wound (right foot wrapped) Neurologic: patellar DTR's 2+ bilat, sensation intact and PERRL, EOMI, accommodation nl, no face palsy, no dysarthria Psychiatric: A+Ox3, euthymic affect Lymphatic: no cervical or axillary lymphadenopathy Results & Data Laboratory Results Laboratory Results - last 24 hr 07/10/18 07/10/18 07/10/18 11:58 17:13 20:46 WBC RBC Hgb Hct MCV MCH MCHC RDW Std Deviation RDW Coeff of Elsa Plt Count MPV Immature Gran % (Auto) Neut % (Auto) Lymph % (Auto) Nolan % (Auto) Eos % (Auto) Baso % (Auto) Immature Gran # (Auto) Neut # (Auto) Lymph # (Auto) Nolan # (Auto) Eos # (Auto) Baso # (Auto) Sodium Potassium Chloride Carbon Dioxide Anion Gap BUN Creatinine Est Cr Clr Drug Dosing Est GFR ( Amer) Est GFR (Non-Af Amer) BUN/Creatinine Ratio Glucose POC Glucose 152 H 289 H 237 H Calcium 07/11/18 07/11/18 07/11/18 05:24 05:24 08:04 WBC 4.08 L RBC 3.57 L Hgb 10.5 L Hct 30.9 L MCV 86.6 MCH 29.4 MCHC 34.0 RDW Std Deviation 40.4 RDW Coeff of Elsa 12.5 Plt Count 197 MPV 9.6 Immature Gran % (Auto) 0.2 Neut % (Auto) 51.0 Lymph % (Auto) 28.9 Nolan % (Auto) 13.5 Eos % (Auto) 4.4 Baso % (Auto) 2.0 Immature Gran # (Auto) 0.01 Neut # (Auto) 2.08 Lymph # (Auto) 1.18 L Nolan # (Auto) 0.55 Eos # (Auto) 0.18 Baso # (Auto) 0.08 Sodium 133 L Potassium 4.1 Chloride 103 Carbon Dioxide 24 Anion Gap 6.0 BUN 14 Creatinine 1.04 Est Cr Clr Drug Dosing 65.7 Est GFR ( Amer) 81.0 Est GFR (Non-Af Amer) 69.9 BUN/Creatinine Ratio 13.6 Glucose 224 H POC Glucose 222 H Calcium 8.1 L 07/11/18 11:58 WBC RBC Hgb Hct MCV MCH MCHC RDW Std Deviation RDW Coeff of Elsa Plt Count MPV Immature Gran % (Auto) Neut % (Auto) Lymph % (Auto) Nolan % (Auto) Eos % (Auto) Baso % (Auto) Immature Gran # (Auto) Neut # (Auto) Lymph # (Auto) Nolan # (Auto) Eos # (Auto) Baso # (Auto) Sodium Potassium Chloride Carbon Dioxide Anion Gap BUN Creatinine Est Cr Clr Drug Dosing Est GFR ( Amer) Est GFR (Non-Af Amer) BUN/Creatinine Ratio Glucose POC Glucose 250 H Calcium Medications Administered Current Inpatient Medications Acetaminophen (Tylenol) 650 mg PO Q4H PRN PRN Reason: Pain or Fever Stop: 08/10/18 06:35 Last Admin: 07/11/18 07:47 Dose: 650 mg Dextrose (Dextrose 50%) 25 - 50 ml IV UD PRN; Protocol PRN Reason: Hypoglycemia Protocol Stop: 08/08/18 18:49 Enoxaparin Sodium (Lovenox) 40 mg SQ QAM [facility] Stop: 08/10/18 08:59 Last Admin: 07/11/18 08:59 Dose: 40 mg Glucagon (Glucagen) 1 mg SQ UD PRN; Protocol PRN Reason: Hypoglycemia Protocol Stop: 08/08/18 18:49 Glucose (Glucose 40%) 15 - 30 gm PO UD PRN; Protocol PRN Reason: Hypoglycemia Protocol Stop: 08/08/18 18:49 Glucose (Dex4 Glucose) 4 - 8 tabs PO UD PRN; Protocol PRN Reason: Hypoglycemia Protocol Stop: 08/08/18 18:49 Heparin Sodium (Beef Lung) (Heparin Sod 10 Unit/Ml Flush) 5 ml FLUSH PRN PRN PRN Reason: Flush Stop: 08/09/18 13:16 Metronidazole (Flagyl) 500 mg in 100 mls @ 100 mls/hr IV Q8H [place] Stop: 08/21/18 01:59 Last Infusion: 07/11/18 11:36 Dose: Infused Sodium Chloride (Nss 1000ml) 1,000 mls @ 100 mls/hr IV .Q10H [place] Stop: 08/08/18 18:49 Last Admin: 07/11/18 11:36 Dose: 100 mls/hr Ceftriaxone Sodium 2,000 mg/ (Dextrose) 70 mls @ 100 mls/hr IV Q24H [place] Stop: 08/21/18 17:29 Last Infusion: 07/10/18 17:49 Dose: Infused Insulin Aspart (Novolog Flexpen) 0 units SC ACHS [place] Stop: 08/09/18 11:29 Last Admin: 07/11/18 12:46 Dose: 10 units Insulin Glargine (Lantus Solostar Pen) 20 units SC QAM [place] Stop: 08/10/18 08:59 Last Admin: 07/11/18 09:06 Dose: 20 units Miscellaneous (Carbohydrates For Hypoglycemia) 15 - 30 gm PO UD PRN PRN Reason: Hypoglycemia Treatment Stop: 08/08/18 18:49 Polyethylene Glycol (Miralax Powder Packet) 17 gm PO DAILY [place] Stop: 07/12/18 09:01 Last Admin: 07/11/18 09:00 Dose: 17 gm
[2018-07-11] MEDS: cefTRIAXone SODIUM 2,000 MG in DEXTROSE 5% 50 ML IV SCH (17:02)
[2018-07-12] MEDS: metroNIDAZOLE 500 MG/100 ML BAG IV SCH ×2 (02:06→10:35)
[2018-07-12] MEDS: SODIUM CHLORIDE 0.9% 1000ML 1,000 ML IV SCH ×2 (08:10→18:18)
[2018-07-12] MEDS: POLYETHYLENE (MIRALAX) 17 GM PACK PO SCH (08:10)
[2018-07-12] MEDS: ENOXAPARIN INJ 40 MG/0.4 ML SYR SQ SCH (08:57)
[2018-07-12] MEDS: INSULIN GLARGINE SOLOSTAR 100 UNITS/ML 3 ML PEN SC SCH (08:58)
[2018-07-12] MEDS: INSULIN ASPART 100 UNITS/ML 3 ML PEN SC SCH ×3 (09:02→18:01)
[2018-07-12] MEDS ORDERED: metroNIDAZOLE 500 MG TAB PO SCH (14:00)
--- NOTE | 2018-07-12 14:42 | Progress Note ---
DATE: 07/12/2018 SUBJECTIVE: Patient is seen at bedside, postoperative day 2. Denies fevers, chills, and night sweats. Currently ambulating in a surgical shoe without problems. Patient notes no problems over PICC line placement. OBJECTIVE: VITAL SIGNS: Afebrile. LOWER EXTREMITY: Vascular: Minimal edema noted over the Op-Site. Pedal pulses palpable. Dermatologic: Skin margins coapted. Good capillary refill noted to the flaps. Mild maceration noted over the site. Ulceration, right fifth DIP joint medially. Neurologic: Epicritic sensation decreased. Musculoskeletal: Amputation, right fourth digit MTPJ level. LABORATORY DATA: OR cultures from 07/10/2018 growing out coag negative staph. Cultures from 07/01/2018 have coag negative staph, alpha strep, not enterococcus and Prevotella bivia. Blood cultures currently show no growth. IMPRESSION: 1. Status post incision and drainage with right fourth toe amputation, postoperative day 2. 2. Cellulitis, with history of osteomyelitis, right foot, improved, status post surgery. 3. Diabetes mellitus type 2, poorly controlled. Recent hemoglobin A1c 9.9. 4. Ulceration, right fifth digit, preulcerative area. DIP joint medially. TREATMENTS: 1. Dressing changed at bedside. 2. Continue ambulation in surgery shoe with dressing intact. 3. Instructed patient would need weekly dressing changes and IV antibiotics. 4. Recommend antibiotics per LINDA Das, stop date 08/23/2018. 5. Intraoperative cultures reviewed. 6. Spoke with Dr. Medina's office today. Will continue for us to follow the patient postoperatively. I will continue to follow him while he is an inpatient. Recommend follow up 1 week postoperatively for dressing changes. Meri Archer gait FINDINGS: tomorrow the years. The 1 foot is on his leg. The leg midleg the [facility] was 3, he is right with a gentleman. The a 1:1 MORPHINE, hydrocodone and then the other day, Zofran 4 mg not track. There x although the leg.
--- NOTE | 2018-07-12 15:18 | Infectious Disease Progress Nt ---
Date of Service July 12, 2018 Assessment & Plan (1) Osteomyelitis of toe of right foot: 73-year-old diabetic male with probable osteomyelitis of the right fourth toe now status post amputation. Previous cultures positive for alpha strep and Prevotella, have recommended combination of daptomycin and oral metronidazole, likely in the range of 6 weeks. We will continue to follow. Subjective Patient seen in follow-up for osteomyelitis of the right fourth toe. Status post amputation. Pain is well controlled. No fever. Follow-up cultures remain negative. Tolerating antibiotic without apparent difficulty. Review of Systems All systems reviewed & are unremarkable except as noted in HPI & below Physical Exam 2 Vital Signs (Past 24 Hours): Last Vital Signs Temp 36.2 C L 07/12/18 15:12 Pulse 70 07/12/18 15:12 Resp 18 07/12/18 15:12 BP 138/77 07/12/18 15:12 Pulse Ox 96 07/12/18 15:12 Constitutional: WD/WN, vitals as above comfortable; no acute distress Eyes: PERRL, conjunctivae normal, anicteric sclerae ENMT: external ear and nose normal, oropharynx normal Neck: trachea midline, no thyromegaly neck nontender Respiratory: normal respiratory effort, lungs clear to auscultation normal percussion; does not use accessory muscles Cardiovascular: Rate/Rhythm: regular rate and regular rhythm Heart Sounds: normal S1 and normal S2; no gallop, no murmur and no cardiac rub Vessels: normal peripheral pulses; no JVD Gastrointestinal (Abdomen): normal bowel sounds, soft, nontender, no hepatosplenomegaly Musculoskeletal: no cyanosis or clubbing, extremities motor strength 5/5 Spine: thoracic spine normal to inspection and lumbar spine normal to inspection ; no cervical spinal tenderness Skin: no rashes, warm and dry normal turgor Surgical dressing intact Neurologic: moves all extremities and awake; no focal motor deficits Motor/ Sensory: + sensory deficit (Both feet) Psychiatric: A+Ox3, euthymic affect Orientation: cooperative Lymphatic: no cervical or axillary lymphadenopathy no inguinal lymphadenopathy Results & Data Laboratory Results Laboratory Results - last 48 hr 07/10/18 07/10/18 07/10/18 11:58 17:13 20:46 WBC RBC Hgb Hct MCV MCH MCHC RDW Std Deviation RDW Coeff of Elsa Plt Count MPV Immature Gran % (Auto) Neut % (Auto) Lymph % (Auto) [place] % (Auto) Eos % (Auto) Baso % (Auto) Immature Gran # (Auto) Neut # (Auto) Lymph # (Auto) [place] # (Auto) Eos # (Auto) Baso # (Auto) Sodium Potassium Chloride Carbon Dioxide Anion Gap BUN Creatinine Est Cr Clr Drug Dosing Est GFR ( Amer) Est GFR (Non-Af Amer) BUN/Creatinine Ratio Glucose POC Glucose 152 H 289 H 237 H Calcium 07/11/18 07/11/18 07/11/18 05:24 05:24 08:04 WBC 4.08 L RBC 3.57 L Hgb 10.5 L Hct 30.9 L MCV 86.6 MCH 29.4 MCHC 34.0 RDW Std Deviation 40.4 RDW Coeff of Elsa 12.5 Plt Count 197 MPV 9.6 Immature Gran % (Auto) 0.2 Neut % (Auto) 51.0 Lymph % (Auto) 28.9 [place] % (Auto) 13.5 Eos % (Auto) 4.4 Baso % (Auto) 2.0 Immature Gran # (Auto) 0.01 Neut # (Auto) 2.08 Lymph # (Auto) 1.18 L [place] # (Auto) 0.55 Eos # (Auto) 0.18 Baso # (Auto) 0.08 Sodium 133 L Potassium 4.1 Chloride 103 Carbon Dioxide 24 Anion Gap 6.0 BUN 14 Creatinine 1.04 Est Cr Clr Drug Dosing 65.7 Est GFR ( Amer) 81.0 Est GFR (Non-Af Amer) 69.9 BUN/Creatinine Ratio 13.6 Glucose 224 H POC Glucose 222 H Calcium 8.1 L 07/11/18 07/11/18 07/11/18 11:58 17:32 20:37 WBC RBC Hgb Hct MCV MCH MCHC RDW Std Deviation RDW Coeff of Elsa Plt Count MPV Immature Gran % (Auto) Neut % (Auto) Lymph % (Auto) [place] % (Auto) Eos % (Auto) Baso % (Auto) Immature Gran # (Auto) Neut # (Auto) Lymph # (Auto) [place]ell # (Auto) Eos # (Auto) Baso # (Auto) Sodium Potassium Chloride Carbon Dioxide Anion Gap BUN Creatinine Est Cr Clr Drug Dosing Est GFR ( Amer) Est GFR (Non-Af Amer) BUN/Creatinine Ratio Glucose POC Glucose 250 H 140 H 170 H Calcium 07/12/18 07/12/18 08:00 13:36 WBC RBC Hgb Hct MCV MCH MCHC RDW Std Deviation RDW Coeff of Elsa Plt Count MPV Immature Gran % (Auto) Neut % (Auto) Lymph % (Auto) [place] % (Auto) Eos % (Auto) Baso % (Auto) Immature Gran # (Auto) Neut # (Auto) Lymph # (Auto) [place] # (Auto) Eos # (Auto) Baso # (Auto) Sodium Potassium Chloride Carbon Dioxide Anion Gap BUN Creatinine Est Cr Clr Drug Dosing Est GFR ( Amer) Est GFR (Non-Af Amer) BUN/Creatinine Ratio Glucose POC Glucose 154 H 252 H Calcium Diagnostic Findings Microbiology 07/10/18 10:31 Toe,Right Fourth Gram Stain - Final 07/10/18 10:31 Toe,Right Fourth Aerobic and Anaerobic Culture - Preliminary No growth to date. 07/09/18 Unknown Toe,Right Fourth Gram Stain - Final 07/09/18 Unknown Toe,Right Fourth Wound Culture - Final Coag negative Staphylococcus 07/09/18 14:02 Blood Blood Culture - Preliminary No growth to date. 07/09/18 13:55 Blood Blood Culture - Preliminary No growth to date. XR chest 1V portable HISTORY: 73 years-old Male PICC TIP CONFIRMATION - [place]TE status post placement of a right-sided PICC COMPARISON: Chest radiograph 12/23/2013 TECHNIQUE: Portable AP view of the chest FINDINGS: Cardiac silhouette is upper limits of normal in size. Right-sided PICC has been placed with distal tip terminating within the region of the mid to inferior SVC. No postprocedural pneumothorax identified. Calcification the thoracic aortic arch. Lungs are hypoinflated with bronchovascular crowding. Subsegmental bibasilar opacities suggest atelectasis. Degenerative changes of the shoulders and spine. IMPRESSION: 1. Right-sided PICC distal tip terminates in the region of the mid to inferior SVC. No postprocedural pneumothorax. 2. Hypoinflation with mild bibasilar atelectasis. The above report was generated using voice recognition software. It may contain grammatical, syntax or spelling errors. Electronically signed by: Low Barrett M.D. 07/10/2018 1:35 PM Dictated: 07/10/18 [id number]
[2018-07-12] MEDS ORDERED: DAPTOmycin 400 MG in SYRINGE 0 ML IV SCH (16:00)
--- NOTE | 2018-07-12 17:17 | Discharge Summary ---
Date of Service July 12, 2018 Admission HPI Per Admitting Provider Mr. Burris is a 73 year old male with past medical history of right fourth toe chronic osteomyelitis times 6 months, type II diabetes mellitus who presented to the ED with worsening acute right fourth toe infection. Recent wound culture of right fourth toe wound was positive for Alpha strep, Coag negative Staph and Prevotella bivia on 07/01/18. He started a course of Cipro/Bactrim as an outpatient with no improvement in foot wound. Pt. states he has had fever/ chills over the last week along with increased redness/swelling of the right foot wound. He denies pain in right foot; pt. has minimal sensation in right foot. Denies chest pain, SOB, LE edema, N/V, diarrhea or constipation, dysuria or hematuria. Foot XR showed fracture through distal shaft of 4th proximal phalanx. Wound and blood cultures are pending. Pt. will be admitted for further work up and podiatry consult for possible surgical intervention. Principal Diagnosis Diabetic foot wound, Osteomyelitis of the toe Discharge Exam Constitutional WD/WN, vitals as above Eyes PERRL, conjunctivae normal, anicteric sclerae ENMT external ear and nose normal, oropharynx normal Neck trachea midline, no thyromegaly Respiratory normal respiratory effort, lungs clear to auscultation Cardiovascular RRR, no murmur, no edema Gastrointestinal (Abdomen) normal bowel sounds, soft, nontender, no hepatosplenomegaly Musculoskeletal Extremities: + extremities abnormal to inspection (right foot in dressing, not removed), no cyanosis and no clubbing Skin no rashes, warm and dry Neurologic moves all extremities and awake; no focal motor deficits Psychiatric A+Ox3, euthymic affect Discharge Data Allergies Allergy/AdvReac Type Severity Reaction Status Date / Time No Known Allergies Allergy Unknown Verified 07/09/18 21:37 Consultations Infectious Diseases Podiatry Procedures Performed Operation Date: 07/10/18 08:35 Actual Procedures p Right 4th toe amputation with incison and drainage(Right) - Meri Gill DPM s debridement of right 5th toe, and flap procedure.(Right) - Meri Gill DPM Ordered Studies 07/10/18 09:32 FL fluoroscopy <1hr Routine FL toe RT 2V Routine CXR Toe xray-Right Foot xray-Right Hospital Course (1) Foot osteomyelitis, right: - Has had right foot ulcer on lateral aspect of fourth toe for ~6 months, follows with podiatry. Now with worsening infection with known osteomyelitis and open fracture of 4th toe - Wound culture 07/03 +Alpha strep, Coag neg Staph and Prevotella bivia, failing outpatient treatment with Cipro and Bactrim. It is possible that the Prevotella is resistant to Cipro Now s/p amputation right 4th toe and debridement 5th toe with Dr. Gill on tolerated well, minimal pain on night after surgery, but now resolved Received Rocephin and IV Flagyl throughout hospitalization, ID would like to switch to IV Daptomycin + po Flagyl x 6 weeks Podiatry and IUD can follow up repeat culture when result available-so far growing Coag neg Staph and awaiting anaerobic cx at time of discharge Infectious disease following Appreciate Podiatry Surgical management Has right arm PICC-home health arranged for home IV abx (2) Type 2 diabetes mellitus: - Most recent hemoglobin A1C was 8.3% in December 2017. - Held home oral medications while here and had hyperglycemia - Hb A1c here is 9.9%-uncontrolled especially in setting of diabetic foot wound with recent surgery Instructed patient on how to use Lantus 15 units once daily for home use-gave Lantus pen from hospital (should last several weeks) and he can f/u with PCP for refills -can restart home metformin and cut his glimepiride in half to avoid hypoglycemia -pt has home glucometer and will start checking glucose readings qachs -needs close f/u with PCP (3) Stage III chronic kidney disease: - Renally dose all meds., Cr is stable (4) Systolic murmur: echo normal,has some sclerosis but no stenosis of AV, no vegetations he has had the murmur for years, ever since he was teenager (5) Electrolyte abnormality: Hyonatremia- Upon admission, corrected sodium level was 129; was given NS at 100 cc/hr. Corrected Na+ up to 136 on the day prior to discharge and IVFs were stopped. Likely secondary to appropriate ADH release due to dehydration, infection Hpomagnesemia-Mg++ mildly low on admission at 1.7 and was replaced with IV magnesium (6) DVT prophylaxis: Lovenox Disposition:stable for dc to home with IV Daptomycin and po Flagyl x 6 weeks, needs weekly CPK, CMP, CBC, ESR, CRP while on antibiotics Total Time Total Time Spent Total Time Spent (In Minutes): >30 min Total Time Includes: Examination of the Patient, Discharge Planning, Medication Reconciliation and Communication With Other Providers (Infectious Disease) Discharge Plan Discharge Items Patient Disposition: Home - Home Health Services Reason For Visit: OSTEOMYELITIS Discharge Diagnosis: Osteomyelitis toe Condition: Good Discharge Goals: Decrease discomfort, Diagnostic testing and Therapeutic intervention Activity: As commented below Bathing: Keep incision dry Exercise/Sports: As tolerated Driving/Machine Use Comment: No driving Non-emergency contact: Primary Care Provider and Surgeon Call non-emergency contact if: you have any medication questions, your symptoms worsen, your pain is not controlled, your pain is worsening, your pain is unusual for you, your pain is concerning for you, you have a fever, your temperature is above 101, your wound has increased redness, your wound has increased drainage and your wound pain has increased Follow-up/Referrals: Jose Zhou III, CRNP [Primary Care Provider] - 07/20/18 11:00 am (Please, follow up with Jose JON on ThursdayJuly 20 at 11:00 am. *If you need to change this appointment, call the office at [phone].) Diet: Carb Consistent or DM2 Addtl Provider Instructions: You were admitted with an infection of your toe and had an amputation performed. Please continue on the IV antibiotic called daptomycin once daily, and the oral antibiotic metronidazole 1 tablet 3 times a day for 6 weeks. 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 You were started on long-acting insulin called Lantus. Please give yourself Lantus 15 units injected once daily to help better control your blood sugars. Your glimepiride will be cut in half to 2 mg once daily. Please follow-up with your primary care physician within 1 week as well. Prescriptions: New daptomycin 500 mg recon soln 400 mg IV DAILY 40 Days Qty: 40 RF: 0 metronidazole 500 mg Tablet 500 mg PO TID 40 Days Qty: 120 RF: 0 acetaminophen [Mapap (acetaminophen)] 325 mg Tablet 650 mg PO Q4H PRN (Reason: pain) Qty: 30 RF: 0 insulin glargine [Lantus Solostar U-100 Insulin] 100 unit/mL (3 mL) Insulin Pen 15 unit SC QAM Qty: 3 RF: 0 Continue metformin 1,000 mg tablet 1,000 mg PO BID RF: 0 Changed glimepiride 4 mg tablet 2 mg PO DAILY Qty: 0 RF: 0 Discontinued ciprofloxacin HCl 500 mg tablet 500 mg PO DIRECTED RF: 0 sulfamethoxazole-trimethoprim 800-160 mg tablet PO DIRECTED RF: 0 Stand-Alone Forms: [facility]/Other Patient Handouts: Injection Pens Dc Discharge Orders: Discharge Order (Routine); Ordered 07/12/18 Ordered By: Twila Colindres Admission Data Admit Date/Time: 07/09/18 17:41 Attending Provider: Twila Colindres Admit Provider: Twila Colindres Primary Care Provider: Jose Zhou III Other Providers: Twila Colindres ; Karissa Garcia ; Meri Gill Service: Medical Other Interventions: Discharge Summary Assessment (RN) Last Done: 07/12/18 16:35 Pending Studies at Discharge: Yes Studies:: Final wound culture results, final blood culture results DC Date/Time DO NOT enter until pt leaves facility: 07/12/18 19:15
== END 2018-07-12 19:15 | disposition home health service (06) | DRG 478 ==
LOC: ED 13:40 → 3N 17:41 → SUATTDRO 17:41 → 3N 18:14
DX: M86.9 Osteomyelitis, unspecified; L03.031 Cellulitis of right toe; B95.5 Unspecified streptococcus as the cause of diseases classified elsewhere; S62.634B Displaced fracture of distal phalanx of right ring finger, initial encounter for open fracture; X58.XXXA Exposure to other specified factors, initial encounter; E87.8 Other disorders of electrolyte and fluid balance, not elsewhere classified; N18.3 Chronic kidney disease, stage 3 (moderate); L97.519 Non-pressure chronic ulcer of other part of right foot with unspecified severity; E11.22 Type 2 diabetes mellitus with diabetic chronic kidney disease; R01.1 Cardiac murmur, unspecified; E11.69 Type 2 diabetes mellitus with other specified complication